=== PATIENT | male | born 1960 | race American Indian/Alaskan Native ===

== ENCOUNTER 2021-03-23 10:20 | Outpatient (REF) | payer OTHER, SELFPAY ==
--- NOTE | ~2021-03-23 | XR_ITS ---
EXAMINATION: XR LUMBOSACRAL SPINE CLINICAL INFORMATION: Low back pain COMPARISON: None TECHNIQUE: Three views of the lumbosacral spine. FINDINGS: There is normal lumbar segmentation with 5 nonrib-bearing lumbar vertebrae of normal height. There is straightening of the lumbar lordosis. There is no lumbar vertebral compression, spondylolisthesis or destructive process. There are degenerative disc changes greatest at L4-L5 with endplate sclerosis, disc narrowing, and vertebral spurring. There are also degenerative disc changes at L3-L4 and borderline at L5-S1. The SI joints and visualized sacrum are unremarkable. XR/XR lumbar spine 2-3V IMPRESSION: 1. No vertebral compression, spondylolisthesis or destructive process. 2. Degenerative disc changes, greatest at L4-L5 and L3-L4.
== END 2021-03-23 10:21 | disposition home or self-care (01) ==
LOC: HO.HMGCX 10:20
PROVIDERS: PCP Nurse Practitioner Family; Visit Provider Nurse Practitioner Family
DX: M54.5 Low back pain (principal)
CPT/HCPCS: 72100

== ENCOUNTER 2021-08-01 08:07 | Outpatient (REF) | payer OTHER, SELFPAY ==
[2021-08-01 11:17] LABS: Appearance Urine CLEAR; Color Urine YELLOW; Glucose Urine UA 100 MG/DL (NEG); Leukocyte Esterase Urine NEG (NEG); Nitrite Urine NEG (NEG); PH 6.5 (5.0-8.0); Specific Gravity - Urine 1.015 (1.005-1.025); Urine Blood NEG (NEG); Urine Ketones NEG (NEG); Urine Protein TRACE MG/DL (NEG-TRACE)
[2021-08-01 11:35] LABS: Estimated Average Glucose 154 mg/dL
[2021-08-01 12:07] LABS: Alanine Aminotransferase 28 U/L (0-40); Albumin Level 4.3 g/dL (3.5-5.0); Alkaline Phosphatase 80 U/L (39-117); Anion Gap 14 (12-20); Aspartate Amino Transferase 20 U/L (5-37); Bilirubin Total 0.5 mg/dL (0.0-1.0); Blood Urea Nitrogen 12 mg/dL (9-16); Carbon Dioxide 24 mmol/L (22-29); Chloride 103 mmol/L (96-108); Cholesterol 248 mg/dL; Estimated Glomerular Filt Rate > 60; Glucose Fasting 138 mg/dL (60-99); HDL Cholesterol 41 mg/dL; LDL Cholesterol Calculated 161 mg/dl; Potassium 3.9 mmol/L (3.3-5.1); Sodium 137 mmol/L (135-145); Triglycerides 232 mg/dL
[2021-08-01 12:13] LABS: Prostate Specific Antigen Scr 1.05 ng/mL (<0.05-4.0); TSH reflex Free T4 2.43 uIU/mL (0.32-4.0)
== END 2021-08-01 08:08 | disposition home or self-care (01) ==
LOC: HO.HMGCLDS 08:07
PROVIDERS: PCP Nurse Practitioner Family; Visit Provider Nurse Practitioner Family
DX: Z00.00 Encounter for general adult medical examination without abnormal findings (principal); Z12.5 Encounter for screening for malignant neoplasm of prostate; R73.01 Impaired fasting glucose
CPT/HCPCS: 36415; 80053; 80061; 81003; 83036; 84153; 84443

== ENCOUNTER 2022-01-30 08:57 | Outpatient (REF) | payer OTHER, SELFPAY ==
[2022-01-30 11:31] LABS: Appearance Urine CLEAR; Color Urine YELLOW; Glucose Urine UA NEG (NEG); Leukocyte Esterase Urine NEG (NEG); Nitrite Urine NEG (NEG); PH 6.5 (5.0-8.0); Specific Gravity - Urine 1.025 (1.005-1.025); Urine Blood NEG (NEG); Urine Ketones NEG (NEG); Urine Protein NEG (NEG-TRACE)
[2022-01-30 11:57] LABS: Alanine Aminotransferase 24 U/L (0-40); Albumin Level 4.4 g/dL (3.5-5.0); Alkaline Phosphatase 87 U/L (39-117); Anion Gap 13 (12-20); Aspartate Amino Transferase 16 U/L (5-37); Bilirubin Total 0.6 mg/dL (0.0-1.0); Blood Urea Nitrogen 11 mg/dL (9-16); Calcium 9.3 mg/dL (8.4-10.2); Carbon Dioxide 28 mmol/L (22-29); Chloride 103 mmol/L (96-108); Cholesterol 190 mg/dL; Estimated Glomerular Filt Rate > 60; Glucose Fasting 133 mg/dL (60-99); HDL Cholesterol 41 mg/dL; LDL Cholesterol Calculated 128 mg/dl; Potassium 4.5 mmol/L (3.3-5.1); Sodium 139 mmol/L (135-145); Total Protein 7.2 g/dL (6.5-8.0); Triglycerides 105 mg/dL
[2022-01-30 11:59] LABS: Estimated Average Glucose 143 mg/dL; Hemoglobin A1c % 6.6 %
[2022-01-30 12:24] LABS: Creatinine Urine 213.72 mg/dL
[2022-01-30 12:25] LABS: TSH reflex Free T4 1.95 uIU/mL (0.32-4.0)
== END 2022-01-30 08:58 | disposition home or self-care (01) ==
LOC: HO.HMGCLDS 08:57
PROVIDERS: Visit Provider Nurse Practitioner Family
DX: E11.9 Type 2 diabetes mellitus without complications (principal)
CPT/HCPCS: 36415; 80053; 80061; 81003; 82043; 83036; 84443

== ENCOUNTER 2022-06-27 18:18 | Observation (INO) | payer OTHER, SELFPAY ==
--- NOTE | ~2022-06-27 | XR_ITS ---
EXAMINATION: XR RIBS, RIGHT CLINICAL INFORMATION: Rib pain. Status post fall COMPARISON: None TECHNIQUE: 3 views of the right ribs were obtained. FINDINGS: The lungs are somewhat expanded and clear. Heart size and progress clarities normal. Multiple views of right ribs reveal minimally displaced fracture right posterior 10th and nondisplaced fracture right ninth, eighth and likely seventh ribs.. There is mild spondylosis dorsal spine XR/XR ribs RT min 3V w CXR1V IMPRESSION: Minimally displaced fracture right posterior 10th rib and nondisplaced fracture posterior right ninth, eighth and likely seventh ribs. There is no visible pneumothorax. The lungs are hypoexpanded but clear.
--- NOTE | ~2022-06-27 | CT_ITS ---
EXAMINATION: CT CHEST, ABDOMEN AND PELVIS WITH CONTRAST. CLINICAL INFORMATION: Fall. Severe left-sided pain. COMPARISON: 3 radiographs from 06/27/2022. TECHNIQUE: Multidetector volumetric imaging was performed from the thoracic inlet to the pubic symphysis following the administration of 100 mL Omnipaque 350 intravenous contrast.No contrast reaction reported. Sagittal and coronal reformatted images were obtained on the technologist workstation. This CT examination was performed using dose optimization techniques as appropriate, variously including the following: *Automated exposure control. *Adjustment of mA and/or kV according to patient size (this includes techniques or standardized protocols for targeted exams where dose is matched to indication/reason for exam; i.e. extremities or head). *Use of iterative reconstruction technique. DLP: 1299 mGy-cm FINDINGS: CHEST: Lungs: Moderate dependent atelectasis. No additional diffuse or focal lung parenchymal abnormalities. No pleural effusion or pneumothorax. The airways remain patent. Mediastinum: The cardiac structures are normal in appearance. No mediastinal free fluid or gas. No pericardial effusion. No hilar, mediastinal, or axillary lymphadenopathy. ABDOMEN/PELVIS: Liver, Biliary Ducts, and Gallbladder: The liver is normal in size and attenuation without focal hepatic lesions or biliary ductal dilatation. The gallbladder is physiologically distended without radiopaque gallstones, pericholecystic fluid, or significant gallbladder wall thickening. Pancreas: The pancreatic duct measures up to 0.35 cm in diameter throughout its course. Otherwise, the pancreas is normal in appearance. Adrenal Glands: The adrenal glands are normal in appearance. Spleen: The spleen is normal in appearance. Kidneys and Ureters: The kidneys demonstrate symmetric nephrograms without evidence of nephrolithiasis or hydronephrosis. No ureterolithiasis or hydroureter. Urinary Bladder: The urinary bladder is partially distended without focal wall thickening. No bladder calculi are noted. Gastrointestinal System: The stomach is decompressed and therefore not well evaluated on this exam. The small bowel is of normal caliber without regions of abnormal wall enhancement. Fluid-filled duodenal diverticulum. Moderate pancolonic diverticulosis without evidence of diverticulitis. Otherwise, the colon is normal in appearance without focal wall thickening or pericolonic inflammatory change. The appendix is not definitively visualized; however, there is no demonstrated inflammation in its expected location to suggest appendicitis. Genitourinary: The prostate gland and seminal vesicles are normal in appearance. Intra-abdominal and Retroperitoneal Spaces: No intra-abdominal free fluid collections or gas. No mesenteric, retroperitoneal, or inguinal lymphadenopathy. Moderate left-sided fat-containing inguinal hernia. VASCULATURE: No evidence of traumatic aortic injury. The aorta is normal in contour and caliber with mild calcific atherosclerotic disease. Musculoskeletal: Mildly displaced fractures of the posterolateral right 8th-10th ribs. No acute fractures of the sternum, clavicles, scapulae, shoulders, thoracolumbar spine, pelvis, or hips. Moderate multilevel degenerative changes of the spine. Moderate degenerative arthropathy of the acromioclavicular joints. No suspicious lytic or sclerotic osseous lesions demonstrated. No soft tissue masses demonstrated. CT/CT abdomen pelvis w con IMPRESSION: 1. Mildly displaced fractures of the posterolateral right 8th-10th ribs. 2. No evidence of additional acute traumatic injury of the chest, abdomen, or pelvis. 3. Pancolonic diverticulosis. 4. Nonspecific mild dilation of the pancreatic duct.
[2022-06-27 18:22] VITALS: BP 165/100; PULSE 77; RESP 18; TEMP 36.1; O2SAT 96; BMI 28.1
[2022-06-27] MEDS: Acetaminophen 325 MG TABLET 650 MG PO (18:33)
[2022-06-27 18:41] LABS: MANUAL DIFF FLAG NO
[2022-06-27 18:56] LABS: Alanine Aminotransferase 27 U/L (0-40); Albumin Level 4.6 g/dL (3.5-5.0); Alkaline Phosphatase 89 U/L (39-117); Anion Gap 14 (12-20); Aspartate Amino Transferase 24 U/L (5-37); Bilirubin Total 0.4 mg/dL (0.0-1.0); Blood Urea Nitrogen 18 mg/dL (9-16); Calcium 9.4 mg/dL (8.4-10.2); Carbon Dioxide 27 mmol/L (22-29); Chloride 103 mmol/L (96-108); Creatinine Clr Calc Pharmacy 79.9; Estimated Glomerular Filt Rate > 60; Glucose Random 203 mg/dL (60-115); Potassium 4.1 mmol/L (3.3-5.1); Sodium 140 mmol/L (135-145); Total Protein 7.3 g/dL (6.5-8.0)
[2022-06-27 18:59] LABS: Basophils Percent Auto 0.4 % (0-2); Eosinophils Absolute Auto 0.1 X10*3/uL (0.0-0.4); Eosinophils Percent Auto 1.4 % (0-4); Hematocrit 45.3 % (42.0-52.0); Hemoglobin 15.3 g/dl (14.0-18.0); Imm Gran Abs Auto 0.07 X10*3/uL (0.00-0.03); Imm Gran Pct Auto 0.8 % (0.0-0.4); Lymphocytes Absolute Auto 1.2 X10*3/uL (1.2-4.9); Lymphocytes Percent Auto 14.4 % (20-40); Mean Corpuscular HGB Conc 33.8 g/dl (31.0-36.0); Mean Corpuscular Volume 85.8 fL (80.0-98.0); Mean Platelet Volume 10.2 fL (9.4-12.4); Monocytes Absolute Auto 1.1 X10*3/uL (0.1-1.2); Monocytes Percent Auto 12.7 % (2-11); Neutrophils Percent Auto 70.3 % (45-73); Platelet Count 227 X10*3/uL (160-400); Red Blood Count 5.28 X10*6/uL (4.60-5.80); Red Cell Distribution Width 13.6 % (11.0-16.0); White Blood Count 8.6 X10*3/uL (4.8-10.8)
[2022-06-28] MEDS: Morphine Sulfate 4 MG/ML CARTRIDGE IVPUSH ×2 (00:03→09:09)
[2022-06-28] MEDS: 0.9 % Sodium Chloride 1,000 ML 999 ML IV (00:03)
--- NOTE | 2022-06-28 00:06 | ED_ITS ---
HPI - Fall General Chief Complaint: Fall Stated Complaint: R Side Pain S/P Fall 06/27/22 Time Seen by Provider: 06/27/22 23:41 Source: patient Mode of arrival: ambulatory Limitations: no limitations History of Present Illness HPI Narrative: This is a 62-year-old male who presents to the emergency department status post slip and fall from standing height. Patient tells me that it he slipped on a wet floor in his garage at home earlier this evening landing on his right side landing on a plow. He tells me that this occurred approximately 8 hours ago. Reports pain came on immediatly after he fell. He now reports right-sided rib pain 10/10, worse with inspiration. Denies hitting his head or losing consciousness. Not on thinners. At this time patient reports discomfort at site. He denies chest pain, shortness of breath, nausea, vomiting, headache, dizziness, vision changes, weakness. Denies preceding sx to fall. MD complaint: fall Onset (ago): hour(s) (8) Fall from: standing Place fall occurred: home Related Data Home Medications Medication Instructions Recorded Confirmed diclofenac sodium 75 mg mg PO 08/01/21 05/11/22 tablet,delayed release gabapentin 300 mg capsule 300 mg PO TID 01/30/22 05/11/22 celecoxib 200 mg capsule 1 cap PO DAILY 06/28/22 06/28/22 Previous Rx's Medication Instructions Recorded alcohol swabs (Alcohol Prep Pads) 1 pad topical TID 30 days #100 ea 08/10/21 blood-glucose meter (FreeStyle #1 ea 08/10/21 Lite Meter kit) lancets 28 gauge (FreeStyle #100 ea 08/10/21 Lancets) blood sugar diagnostic (FreeStyle #100 ea 09/06/21 Lite Strips) atorvastatin 20 mg tablet 20 mg PO BEDTIME 90 days #90 tabs 10/26/21 pantoprazole 40 mg tablet,delayed 40 mg PO DAILY 90 days #90 tabs 10/26/21 release lisinopril 2.5 mg tablet 2.5 mg PO DAILY 30 days #30 tabs 04/22/22 Allergies Allergy/AdvReac Type Severity Reaction Status Date / Time No Known Allergies Allergy Verified 06/27/22 18:22 Review of Systems Review of Systems: Constitutional : No Weight loss, No Fever, No Chills, No Fatigue, No Malaise ENT/Mouth : No sore throat, No Rhinorrhea Eyes: No Eye Pain, No Swelling, No Redness Cardiovascular : No Chest Pain, No SOB, No Dyspnea on Exertion, No Orthopnea, No Edema, No Palpitations Respiratory : No Cough, No Sputum, No Wheezing Gastrointestinal : No Nausea, No Vomiting, No Diarrhea, No Constipation, No abdominal Pain, No Hematochezia, No Melena Genitourinary : No Dysuria, No Urinary Frequency, No Hematuria, Musculoskeletal : No joint pain, No Myalgias, No Joint Swelling, + rib pain Skin : No Skin Lesions, No rash Neuro : No Weakness, No Numbness, No Dizziness, No Headache All other systems reviewed and are negative Yes all other systems are reviewed and are negative [facility] Past Medical History Attestation statement: The following information was validated with the patient. Source: old records reviewed and nursing notes reviewed Family History Family History Father HTN (hypertension) Diabetes mellitus Mother Asthma Mental health disorder Brother No problems noted. Brother Substance use disorder Son No problems noted. Sister Mental health disorder Sister No problems noted. Son No problems noted. 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 Appearance: Alert.? Oriented X3.? No acute distress.? Patient extremely uncomfortable lying in the bed secondary to pain. Head: Normocephalic, atraumatic, no step-offs or deformities Eyes: Pupils equal, round and reactive to light.? ENT: Pharynx normal.? Neck: Normal inspection.? Neck supple.? CVS: Normal heart rate and rhythm.? Pulses normal. Pain with palpation to the right side of the chest. No signs of paradoxical chest rise and fall or flail chest. Respiratory: No respiratory distress.? Breath sounds normal.? Abdomen: Soft and nontender.? Skin: Skin warm and dry.? Normal skin color.? Normal skin turgor.? Extremities: No lower extremity edema.? No calf ttp. 5/5 strength to bilateral upper and lower extremities Back: No midline tenderness, no C-spine tenderness, full range of motion, no CVA tenderness bilaterally Neuro: Oriented X 3.? No motor deficit.? No sensory deficit. Course Reevaluation(s) Reevaluation #1: CBC with no acute findings. Chemistry w/o acute findings. Coags wnl. Xray of ribs w/ multiple fib fx 7-10 on right, no pneumothorax. CT of chest abd and pelvis pending. Time: 01:30 Reevaluation #2: CT of the chest with mildly displaced fractures of the posterior lateral right 8th through 10th ribs, consistent with physical exam findings. No evidence of additional acute traumatic injury of the chest, abdomen or pelvis. Benedict colonic diverticulosis noted, educated patient on diagnosis. At this time patient reporting 7/10 pain at rest despite morphine and Dilaudid. He tells me that if he moves, laughs or sneezes his pain goes up to a 20. Patient extremely uncomfortable, nursing had a tough time putting Lidoderm patch an affected area as patient was in so much pain. I do not think patient would do well being discharged home with p.o. pain meds as he is still in significant pain despite IV pain meds. At this time patient will be admitted to the hospital for observation, pain control. I did order incentive spirometer on this patient Time: 02:57 MDM - Fall MDM Narrative Medical decision making narrative: 0000 This is a 62-year-old male who presents to the ED status post slip and fall on a wet floor 8 hours ago, landing on his right side on a plow. Denies hitting his head or losing consciousness. Physical exam significant for pain to palpation on the right side of chest. Upon entrance into the ED patient had a rib series done in triage which showed 4 consecutive rib fractures, 7 through 10. Will rule out more rib fractures with CT. Plan at this time includes trauma scans of the chest, abdomen and pelvis, basic labs, a PT and INR Medical Records Attestation: I reviewed the patient's medical records. Lab Data Attestation: I reviewed the patient's lab results. Result diagrams: 06/27/22 18:32 06/27/22 18:32 Labs: Lab Results 06/27/22 06/27/22 06/28/22 Range/Units 18:32 18:32 00:14 WBC 8.6 (4.8-10.8) X10*3/uL RBC 5.28 (4.60-5.80) X10*6/uL Hgb 15.3 (14.0-18.0) g/dl Hct 45.3 (42.0-52.0) % MCV 85.8 (80.0-98.0) fL MCH 29.0 (27.0-33.0) pg MCHC 33.8 (31.0-36.0) g/dl RDW 13.6 (11.0-16.0) % Plt Count 227 (160-400) X10*3/uL MPV 10.2 (9.4-12.4) fL Immature Gran % (Auto) 0.8 H (0.0-0.4) % Neut % (Auto) 70.3 (45-73) % Lymph % (Auto) 14.4 L (20-40) % [place] % (Auto) 12.7 H (2-11) % Eos % (Auto) 1.4 (0-4) % Baso % (Auto) 0.4 (0-2) % Lymph # (Auto) 1.2 (1.2-4.9) X10*3/uL [place] # (Auto) 1.1 (0.1-1.2) X10*3/uL Eos # (Auto) 0.1 (0.0-0.4) X10*3/uL Baso # (Auto) 0.0 (0.0-0.2) X10*3/uL Abs Immat Gran (auto) 0.07 H (0.00-0.03) X10*3/uL Absolute Neuts (auto) 6.0 (2.0-8.3) x10*3/uL Absolute Nucleated RBC 0.000 (0.0-0.012) X10*3/uL Nucleated RBC % (auto) 0.0 (0.0-0.2) /100WBC PT 12.1 (10.0-13.1) SEC INR 1.1 (0.9-1.1) Sodium 140 (135-145) mmol/L Potassium 4.1 (3.3-5.1) mmol/L Chloride 103 (96-108) mmol/L Carbon Dioxide 27 (22-29) mmol/L Anion Gap 14 (12-20) BUN 18 H D (9-16) mg/dL Creatinine 0.98 (0.5-1.4) mg/dL Estim Creat Clear Calc 79.9 Estimated GFR > 60 Random Glucose 203 H (60-115) mg/dL Calcium 9.4 (8.4-10.2) mg/dL Total Bilirubin 0.4 (0.0-1.0) mg/dL AST 24 D (5-37) U/L ALT 27 (0-40) U/L Alkaline Phosphatase 89 (39-117) U/L Troponin I High Sens (<3.5-35.0) ng/L Total Protein 7.3 (6.5-8.0) g/dL Albumin 4.6 (3.5-5.0) g/dL 06/28/22 Range/Units 18:32 WBC (4.8-10.8) X10*3/uL RBC (4.60-5.80) X10*6/uL Hgb (14.0-18.0) g/dl Hct (42.0-52.0) % MCV (80.0-98.0) fL MCH (27.0-33.0) pg MCHC (31.0-36.0) g/dl RDW (11.0-16.0) % Plt Count (160-400) X10*3/uL MPV (9.4-12.4) fL Immature Gran % (Auto) (0.0-0.4) % Neut % (Auto) (45-73) % Lymph % (Auto) (20-40) % [place] % (Auto) (2-11) % Eos % (Auto) (0-4) % Baso % (Auto) (0-2) % Lymph # (Auto) (1.2-4.9) X10*3/uL [place] # (Auto) (0.1-1.2) X10*3/uL Eos # (Auto) (0.0-0.4) X10*3/uL Baso # (Auto) (0.0-0.2) X10*3/uL Abs Immat Gran (auto) (0.00-0.03) X10*3/uL Absolute Neuts (auto) (2.0-8.3) x10*3/uL Absolute Nucleated RBC (0.0-0.012) X10*3/uL Nucleated RBC % (auto) (0.0-0.2) /100WBC PT (10.0-13.1) SEC INR (0.9-1.1) Sodium (135-145) mmol/L Potassium (3.3-5.1) mmol/L Chloride (96-108) mmol/L Carbon Dioxide (22-29) mmol/L Anion Gap (12-20) BUN (9-16) mg/dL Creatinine (0.5-1.4) mg/dL Estim Creat Clear Calc Estimated GFR Random Glucose (60-115) mg/dL Calcium (8.4-10.2) mg/dL Total Bilirubin (0.0-1.0) mg/dL AST (5-37) U/L ALT (0-40) U/L Alkaline Phosphatase (39-117) U/L Troponin I High Sens < 3.5 (<3.5-35.0) ng/L Total Protein (6.5-8.0) g/dL Albumin (3.5-5.0) g/dL Critical Care Time Critical Care Time Critical Care Time: No Discharge Plan Discharge Clinical Impression: Multiple rib fractures, Fall Patient Disposition: Admitted As Inpatient
[2022-06-28 00:23] VITALS: BP 147/90; PULSE 56; RESP 20; O2SAT 96
[2022-06-28] MEDS: iohexoL 350 MG/ML 100 ML INFUS..BTL 85 ML IV (00:54)
[2022-06-28 01:12] LABS: INTERNATIONAL NORM RATIO 1.1 (0.9-1.1); Prothrombin Time 12.1 SEC (10.0-13.1)
--- NOTE | 2022-06-28 02:01 | PC.NURSE ---
pt drowsy, cont to report high pain w movement - pt unable to put a number to pain, vss, med rec complete.
[2022-06-28 02:07] LABS: Troponin-I High Sensitivity < 3.5 ng/L (<3.5-35.0)
[2022-06-28] MEDS: Lidocaine 4 % Patch ADH..PATCH 1 PATCH TRANSDERMA (02:09)
[2022-06-28] MEDS: HYDROmorphone HCl 0.5 MG/0.5 ML SYRINGE IVPUSH (02:10)
[2022-06-28 02:42] VITALS: BP 136/83; PULSE 53; RESP 18; O2SAT 96
--- NOTE | 2022-06-28 03:21 | PC.NURSE ---
RN assumed care of patient at this time.
--- NOTE | 2022-06-28 05:06 | PC.NURSE ---
Provided patient with incentive spirometry. Patient goal is 2400 based height and age. Patient able to do 1750 at this time. RN instructed patient to try 10x per hour while awake.
[2022-06-28 05:16] VITALS: BP 134/84; PULSE 57; RESP 18; O2SAT 95
--- NOTE | 2022-06-28 06:03 | PM.IMHP ---
History of Present Illness Date of Service: 06/28/22 Chief Complaint: fall, pain post falling 62-year-old male with past medical history of diabetes, sleep apnea, who presents to the hospital with complaints of right-sided chest wall pain. Patient reports that he was working in the garage, the garage was from the recent rain, he slipped and fell on his side and had significant pain and difficulty breathing as a result. Therefore came to the hospital. Patient reports that his pain was 10/10, localized to the right ribcage, not relieved by any p.o. medications given, pain is nonradiating, and is constant. Patient reports better pain control with IV medications, he states that his breathing has improved. Patient otherwise denies any headache, no change in vision, no recent cough, no abdominal pain nausea or vomiting, no diarrhea constipation and no urinary symptoms. On arrival to the ED patient hemodynamically stable with no significant abnormal vitals except high blood pressure labs reviewed, unremarkable Chest CT shows mildly displaced fractures of the posterolateral right 8th to 10th ribs, no evidence of additional acute traumatic injury of the chest, pancolonic diverticulosis patient given multiple rounds of pain control with minimal relief, patient will be admitted for intractable pain Review of Systems Review of Systems: Yes all other systems are reviewed and are negative [facility] Medical History (Updated 06/28/22 @ 06:08 by Jaime Fernandes MD) Diabetes Sleep apnea Family History Father HTN (hypertension) Diabetes mellitus Mother Asthma Mental health disorder Brother No problems noted. Brother Substance use disorder Son No problems noted. Sister Mental health disorder Sister No problems noted. Son No problems noted. 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 Meds Allergies Allergy/AdvReac Type Severity Reaction Status Date / Time No Known Allergies Allergy Verified 06/27/22 18:22 Active Medications: Current Medications Acetaminophen (Acetaminophen 325 Mg Tablet) 650 mg PO Q6H PRN PRN Reason: Pain, Mild (Pain Scale 1-3) Docusate Sodium (Docusate Sodium 100 Mg Capsule) 100 mg PO DAILY PRN PRN Reason: Constipation Morphine Sulfate (Morphine Sulfate 4 Mg/Ml Cartridge) 4 mg IVPUSH Q4H PRN; Protocol PRN Reason: Pain, Severe (Pain Scale 7-10) Ondansetron HCl (Ondansetron Hcl 4 Mg/2 Ml Vial) 4 mg IVPUSH Q8H PRN PRN Reason: Nausea and Vomiting Oxycodone HCl (Oxycodone Hcl Immed Release 5 Mg Tablet) 5 mg PO Q6H PRN PRN Reason: Pain, Severe (Pain Scale 7-10) Pharmacy Consult (Consult Rx Perform Med Rec) 1 each MISCELLANE ONCE PRN PRN Reason: Consult order Sodium Chloride (0.9 % Sodium Chloride Flush 3 Ml Syringe) 3 ml IVFLUSH [facility] Home Medications Medication Instructions Recorded Confirmed Last Taken Type celecoxib 200 mg capsule 1 cap PO DAILY 06/28/22 06/28/22 Unknown History Physical Exam Vital Signs and Narrative: Vital Signs: Last Vital Signs Temp 97.0 F 06/27/22 18:22 Pulse 57 06/28/22 05:16 Resp 18 06/28/22 05:16 BP 134/84 06/28/22 05:16 Pulse Ox 95 06/28/22 05:16 O2 Del Method 06/28/22 05:16 BMI result Body Mass Index 28.1 Const: Other: patient appears comfortable at this time, although slightly somnolent but wakes up fully and answers questions appropriately General: cooperative and no acute distress Orientation/consciousness: patient oriented x3 Eyes: General: appearance normal, both eyes and all related structures Chest: Other: tender in the right region on minimal palpation Resp: Effort & Inspection: normal respiratory effort Auscultation: clear to auscultation bilaterally Cardio: Rate: regular rate Rhythm: regular rhythm GI: Palpation (GI): Soft to palpation Auscultation: normal bowel sounds Skin: General skin exam: no rashes or lesions noted Neuro: General: patient oriented x3 Cognition (Neuro): normal cognition Extrem: General: Yes normal to inspection and Yes no pedal edema Results Labs CBC and Chem 7: 06/28/22 06:57 06/28/22 06:57 Labs: Laboratory Results - last 24 hr 06/27/22 06/27/22 06/28/22 18:32 18:32 00:14 MCV 85.8 MCH 29.0 MCHC 33.8 RDW 13.6 Plt Count 227 MPV 10.2 Immature Gran % (Auto) 0.8 H Neut % (Auto) 70.3 Lymph % (Auto) 14.4 L Cannon % (Auto) 12.7 H Eos % (Auto) 1.4 Baso % (Auto) 0.4 Lymph # (Auto) 1.2 [place] # (Auto) 1.1 Eos # (Auto) 0.1 Baso # (Auto) 0.0 Abs Immat Gran (auto) 0.07 H Absolute Neuts (auto) 6.0 Absolute Nucleated RBC 0.000 Nucleated RBC % (auto) 0.0 PT 12.1 INR 1.1 Anion Gap 14 Estim Creat Clear Calc 79.9 Estimated GFR > 60 Random Glucose 203 H Calcium 9.4 Total Bilirubin 0.4 AST 24 D ALT 27 Alkaline Phosphatase 89 Total Protein 7.3 Albumin 4.6 Imaging Radiologist's Impressions: Impressions Ribs X-Ray 06/27/22 18:49 IMPRESSION: Minimally displaced fracture right posterior 10th rib and nondisplaced fracture posterior right ninth, eighth and likely seventh ribs. There is no visible pneumothorax. The lungs are hypoexpanded but clear. Abdomen/Pelvis CT 06/28/22 00:45 IMPRESSION: 1. Mildly displaced fractures of the posterolateral right 8th-10th ribs. 2. No evidence of additional acute traumatic injury of the chest, abdomen, or pelvis. 3. Pancolonic diverticulosis. 4. Nonspecific mild dilation of the pancreatic duct. Chest CT 06/28/22 00:45 IMPRESSION: 1. Mildly displaced fractures of the posterolateral right 8th-10th ribs. 2. No evidence of additional acute traumatic injury of the chest, abdomen, or pelvis. 3. Pancolonic diverticulosis. 4. Nonspecific mild dilation of the pancreatic duct. Assessment and Plan (1) Multiple rib fractures: Status: Acute (2) Fall: Status: Acute (3) Intractable pain: Status: Acute Plan 62-year-old male with past medical history of diabetes as well as sleep apnea not on CPAP due to insurance issues presents the hospital with complaints of fall and pain on the right side found to have rib fractures # intractable chest wall pain - secondary to rib fractures - at this time will prescribe him IV as well as p.o. narcotics - taper off as tolerated - incentive spirometry # rib fractures - secondary to fall - intractable pain - pain control - incentive spirometry # fall - mechanical in nature on the wet slippery floor - fall precaution # diabetes - low-dose sliding scale insulin - diabetic diet # sleep apnea - does not use CPAP due to insurance issues # hypertension - stable - continue lisinopril DVT prophylaxis: Lovenox Quality Stroke Does the patient have a stroke diagnosis?: No VTE Prior VTE?: No VTE Risk Level:: Medical - moderate - high VTE Device Contraindication: Treatment Not Indicated VTE Drug Contraindication: Treatment Not Indicated
--- NOTE | 2022-06-28 07:22 | PHA.MEDREC ---
Pharmacy Consult ? Medication Reconciliation Nurse has completed the medication reconciliation, pharmacist reviewed
[2022-06-28 07:32] LABS: MANUAL DIFF FLAG NO
[2022-06-28 07:53] LABS: Basophils Percent Auto 0.6 % (0-2); Eosinophils Absolute Auto 0.1 X10*3/uL (0.0-0.4); Eosinophils Percent Auto 1.7 % (0-4); Hematocrit 42.2 % (42.0-52.0); Imm Gran Abs Auto 0.02 X10*3/uL (0.00-0.03); Imm Gran Pct Auto 0.3 % (0.0-0.4); Lymphocytes Absolute Auto 1.2 X10*3/uL (1.2-4.9); Lymphocytes Percent Auto 18.9 % (20-40); Mean Corpuscular HGB Conc 33.2 g/dl (31.0-36.0); Mean Corpuscular Hemoglobin 28.6 pg (27.0-33.0); Mean Corpuscular Volume 86.3 fL (80.0-98.0); Mean Platelet Volume 10.1 fL (9.4-12.4); Monocytes Absolute Auto 0.9 X10*3/uL (0.1-1.2); Monocytes Percent Auto 14.4 % (2-11); Neutrophils Absolute Auto 4.2 x10*3/uL (2.0-8.3); Neutrophils Percent Auto 64.1 % (45-73); Platelet Count 212 X10*3/uL (160-400); Red Blood Count 4.89 X10*6/uL (4.60-5.80); Red Cell Distribution Width 13.7 % (11.0-16.0); White Blood Count 6.5 X10*3/uL (4.8-10.8)
[2022-06-28 07:58] LABS: Anion Gap 13 (12-20); Blood Urea Nitrogen 15 mg/dL (9-16); Carbon Dioxide 24 mmol/L (22-29); Chloride 105 mmol/L (96-108); Creatinine Clr Calc Pharmacy 105.8; Estimated Glomerular Filt Rate > 60; Glucose Random 120 mg/dL (60-115); Potassium 4.1 mmol/L (3.3-5.1); Sodium 138 mmol/L (135-145)
[2022-06-28 08:04] LABS: Calcium 8.5 mg/dL (8.4-10.2)
[2022-06-28 08:55] LABS: COVID-19 Test Negative (Negative)
[2022-06-28] MEDS: Omeprazole 20 MG CAPSULE.DR PO (09:08)
[2022-06-28] MEDS: Enoxaparin Sodium 40 MG/0.4 ML SYRINGE SUBCUT (09:08)
[2022-06-28] MEDS: 0.9 % Sodium Chloride Flush 3 ML SYRINGE IVFLUSH (09:09)
[2022-06-28 09:27] VITALS: BP 138/88; PULSE 58; RESP 16; TEMP 36.9; O2SAT 95
[2022-06-28] MEDS: lisinopriL 2.5 MG TABLET PO (09:57)
--- NOTE | 2022-06-28 11:23 | PC.NURSE ---
pt amb well with no assistance.
--- NOTE | 2022-06-28 14:31 | PM.DS ---
DS: Providers Provider Date of Service: 06/28/22 Date of admission: 06/28/22 04:35 Primary care physician: Toribio Schwartz [facility] DS: Diagnosis Discharge Diagnosis (1) Multiple rib fractures: Status: Acute (2) Fall: Status: Acute (3) Intractable pain: Status: Acute DS: Summary Hospital Course Hospital Course: Chief Complaint:? fall, pain post falling ?62-year-old male with past medical history of diabetes, sleep apnea, who presents to the hospital with complaints of right-sided chest wall pain.? Patient reports that he was working in the garage, the garage was from the recent rain, he slipped and fell on his side and had significant pain and difficulty breathing as a result.? Therefore came to the hospital.? Patient reports that his pain was 10/10, localized to the right ribcage, not relieved by any p.o. medications given,? pain is nonradiating, and is constant.? Patient reports better pain control with IV medications,? he states that his breathing has improved. ? Patient otherwise denies any headache, no change in vision, no recent cough, no abdominal pain nausea or vomiting, no diarrhea constipation and no urinary symptoms. ? On arrival to the ED patient hemodynamically stable with no significant abnormal vitals except high blood pressure ?labs reviewed, unremarkable Chest CT shows mildly displaced fractures of the posterolateral right 8th to 10th ribs, no evidence of additional acute traumatic injury of the chest, pancolonic diverticulosis ?patient given multiple rounds of pain control with? minimal relief, patient will be admitted for intractable pain hospital course 62-year-old male with past medical history of diabetes as well as sleep apnea not on CPAP due to insurance issues presents the hospital with complaints of Mechanicalfall and pain on the right side found to have 8-10 mildly displaced right sided rib fractures, patient admitted to medical floor with intractable chest pain treated with IV morphine and Lidoderm patch patient's symptoms improved currently he is feeling better therefore being discharged home on oxycodone 5 mg q.4 hours as needed, Tylenol t.i.d. and Celebrex twice daily he has been strongly recommended to use incentive spirometry deep breathing and ambulation as tolerated. in regard to chronic medical issues including diabetes, hypertension he is recommended to resume home medications? Time Spent with Patient Time attestation: Total time spent providing and/or coordinating discharge services: Discharge coordination time: Greater than 30 minutes Quality: Safe Use of Opioids Does Pt have an Active Cancer Diagnosis on the Problem List?: No Quality: Stroke Does the patient have a stroke diagnosis?: No Physical Exam Vital Signs: Vital Signs: Last Vital Signs Temp 98.4 F 06/28/22 09:27 Pulse 58 06/28/22 09:27 Resp 16 06/28/22 09:27 BP 138/88 06/28/22 09:27 Pulse Ox 95 06/28/22 09:27 O2 Del Method 06/28/22 09:27 BMI result Body Mass Index 28.1 Const: Other: General awake alertin no acute distress. Neck supple no JVD. CVS regular rate rhythm, Respiratory lungs clear to auscultation, diminished at bases, no respiratory distress, no wheeze, no rhonchi. Gastrointestinal abdomen soft, nontender, bowel sounds audible, Extremities no edema. Neuro nonfocal psych appropriate affect DS: Data Data Completed and Pending Labs on day of discharge: Laboratory Results - last 24 hr 06/27/22 06/27/22 06/28/22 18:32 18:32 00:14 WBC 8.6 RBC 5.28 Hgb 15.3 Hct 45.3 MCV 85.8 MCH 29.0 MCHC 33.8 RDW 13.6 Plt Count 227 MPV 10.2 Immature Gran % (Auto) 0.8 H Neut % (Auto) 70.3 Lymph % (Auto) 14.4 L Pickett % (Auto) 12.7 H Eos % (Auto) 1.4 Baso % (Auto) 0.4 Lymph # (Auto) 1.2 Pickett # (Auto) 1.1 Eos # (Auto) 0.1 Baso # (Auto) 0.0 Abs Immat Gran (auto) 0.07 H Absolute Neuts (auto) 6.0 Absolute Nucleated RBC 0.000 Nucleated RBC % (auto) 0.0 PT 12.1 INR 1.1 Sodium 140 Potassium 4.1 Chloride 103 Carbon Dioxide 27 Anion Gap 14 BUN 18 H D Creatinine 0.98 Estim Creat Clear Calc 79.9 Estimated GFR > 60 Random Glucose 203 H Calcium 9.4 Total Bilirubin 0.4 AST 24 D ALT 27 Alkaline Phosphatase 89 Troponin I High Sens Total Protein 7.3 Albumin 4.6 COVID-19 (PRICE) COVID-19 Clin Com 06/28/22 06/28/22 06/28/22 06:57 06:57 08:34 WBC 6.5 RBC 4.89 Hgb 14.0 Hct 42.2 MCV 86.3 MCH 28.6 MCHC 33.2 RDW 13.7 Plt Count 212 MPV 10.1 Immature Gran % (Auto) 0.3 Neut % (Auto) 64.1 Lymph % (Auto) 18.9 L Pickett % (Auto) 14.4 H Eos % (Auto) 1.7 Baso % (Auto) 0.6 Lymph # (Auto) 1.2 Pickett # (Auto) 0.9 Eos # (Auto) 0.1 Baso # (Auto) 0.0 Abs Immat Gran (auto) 0.02 Absolute Neuts (auto) 4.2 Absolute Nucleated RBC 0.000 Nucleated RBC % (auto) 0.0 PT INR Sodium 138 Potassium 4.1 Chloride 105 Carbon Dioxide 24 Anion Gap 13 BUN 15 Creatinine 0.74 Estim Creat Clear Calc 105.8 Estimated GFR > 60 Random Glucose 120 H D Calcium 8.5 D Total Bilirubin AST ALT Alkaline Phosphatase Troponin I High Sens Total Protein Albumin COVID-19 (PRICE) Negative COVID-19 [facility] See Note 06/28/22 18:32 WBC RBC Hgb Hct MCV MCH MCHC RDW Plt Count MPV Immature Gran % (Auto) Neut % (Auto) Lymph % (Auto) Pickett % (Auto) Eos % (Auto) Baso % (Auto) Lymph # (Auto) Pickett # (Auto) Eos # (Auto) Baso # (Auto) Abs Immat Gran (auto) Absolute Neuts (auto) Absolute Nucleated RBC Nucleated RBC % (auto) PT INR Sodium Potassium Chloride Carbon Dioxide Anion Gap BUN Creatinine Estim Creat Clear Calc Estimated GFR Random Glucose Calcium Total Bilirubin AST ALT Alkaline Phosphatase Troponin I High Sens < 3.5 Total Protein Albumin COVID-19 (PRICE) COVID-19 [email or web address] Com Discharge Plan Discharge Patient Disposition: Home, Self-Care Discharge Diagnosis: mechanical fall intractable pain 8-10 right-sided rib fracture Referrals: Toribio Schwartz, MAKE UP OPERATOR-BC [Primary Care Provider] - 1 Week Discharge Medications: New oxycodone 5 mg Tablet 5 mg PO Q4H PRN (Reason: Pain, Severe (Pain Scale 7-10)) Qty: 24 0RF Rx Instructions: Partial Fill upon patient request. docusate sodium [Colace] 100 mg capsule 100 mg PO BID Qty: 60 0RF acetaminophen [Tylenol Extra Strength] 500 mg tablet 500 mg PO Q8H Qty: 60 0RF Rx Instructions: take 1-2 tablets every 8 hours for 5-7 days lidocaine 5 % adhesive patch,medicated 1 patch topical DAILY Qty: 15 0RF Rx Instructions: leave on most painful area for up to 12 hrs Continued alcohol swabs [Alcohol Prep Pads] Pads, Medicated 1 pad topical TID 30 Days Qty: 100 0RF Rx Instructions: test BS 3 times daily (DME) blood-glucose meter [FreeStyle Lite Meter] Kit See Rx Instructions .Route Qty: 1 0RF Rx Instructions: test BS 3 times daily (DME) lancets [FreeStyle Lancets] 28 gauge misc See Rx Instructions .Route Qty: 100 0RF Rx Instructions: test BS 3 times daily (DME) FreeStyle Lite Strips Strip See Rx Instructions .Route Qty: 100 0RF Rx Instructions: test BS 3 times daily pantoprazole 40 mg tablet,delayed release (DR/EC) 40 mg PO DAILY 90 Days Qty: 90 0RF atorvastatin 20 mg tablet 20 mg PO BEDTIME 90 Days Qty: 90 0RF lisinopril 2.5 mg tablet 2.5 mg PO DAILY 30 Days Qty: 30 3RF celecoxib 200 mg capsule 1 cap PO DAILY Discharge Orders: Discharge Order (Routine); Ordered 06/28/22 Ordered By: Christiano Woodard Diet: Diabetic diet Activity on Discharge: As tolerated Stand Alone Forms: Patient Portal Discharge page Care Plan Goals: use incentive spirometry/ ambulate as tolerated/ splint chest with pillow return to hospital with worsening shortness of breath, fever chills take Tylenol 3 times a day, increase dose of Celebrex to 1 tablet twice daily, take oxycodone 1 tablet every 4 hours as needed for his severe, take stool softeners and high-fiber diet, avoid constipation Health Concerns: take all home medications as before Plan of Treatment: outpatient follow-up with PCP Assessment: as per discharge summary
[2022-06-28] MEDS: oxyCODONE HCl Immed Release 5 MG TABLET PO (14:44)
--- NOTE | 2022-06-28 14:47 | MHC.CM.PN ---
YANN ADDRESSED, YELLOW COPY TO PATIENT, WHITE COPY TO FILE IN CHART TRINIDADIAN SPEAKING PATIENT LIVES WITH SPOUSE EDUCATED ON HCP, DECLINED TO COMPLETE ONE AT THIS TIME INDEPENDENT AT HOME AND COMMUNITY DENIES USE OF DME OR RECEIVING HOME SERVICES IFRAH TAVAREZ'Bettie X2 PFIZER PCP: [facility] WILL TRANSPORT D/C PLAN: HOME SELF-CARE
== END 2022-06-28 14:45 | disposition home or self-care (01) ==
LOC: HO.ED 06-28 02:55 → HO.EDOVER 06-28 04:38
PROVIDERS: Physician Assistant; Admitting Provider Internal Medicine; Emergency Provider Internal Medicine; PCP Nurse Practitioner Family; Visit Provider Hospitalist
DX: S22.41XA Multiple fractures of ribs, right side, initial encounter for closed fracture (principal); R07.89 Other chest pain; R07.81 Pleurodynia; M54.6 Pain in thoracic spine; I10 Essential (primary) hypertension; E11.9 Type 2 diabetes mellitus without complications; W01.0XXA Fall on same level from slipping, tripping and stumbling without subsequent striking against object, initial encounter; Y93.9 Activity, unspecified; Y92.009 Unspecified place in unspecified non-institutional (private) residence as the place of occurrence of the external cause; Y99.9 Unspecified external cause status; Z20.822 Contact with and (suspected) exposure to COVID-19; Z79.4 Long term (current) use of insulin; Z79.899 Other long term (current) drug therapy
CPT/HCPCS: 36415; 71101; 71260; 74177; 80048; 80053; 84484; 85025; 85610; 87635; 96374; 96375; 99218; 99284; J1170; J1650; J2270; Q9967

== ENCOUNTER 2022-08-16 09:56 | Outpatient (REF) | payer OTHER, SELFPAY ==
[2022-08-16 11:17] LABS: MANUAL DIFF FLAG NO
[2022-08-16 11:17] LABS: Appearance Urine Clear; Color Urine Yellow; Glucose Urine UA Negative (Negative); Leukocyte Esterase Urine Negative (Negative); Nitrite Urine Negative (Negative); Specific Gravity - Urine 1.025 (1.005-1.025); Urine Blood Negative (Negative); Urine Ketones Negative (Negative); Urine Protein Trace mg/dL (Neg-Trace)
[2022-08-16 11:21] LABS: Basophils Percent Auto 0.4 % (0-2); Eosinophils Absolute Auto 0.1 X10*3/uL (0.0-0.4); Eosinophils Percent Auto 1.8 % (0-4); Hemoglobin 15.4 g/dl (14.0-18.0); Imm Gran Abs Auto 0.01 X10*3/uL (0.00-0.03); Imm Gran Pct Auto 0.2 % (0.0-0.4); Lymphocytes Absolute Auto 1.1 X10*3/uL (1.2-4.9); Lymphocytes Percent Auto 20.7 % (20-40); Mean Corpuscular HGB Conc 32.8 g/dl (31.0-36.0); Mean Corpuscular Hemoglobin 28.3 pg (27.0-33.0); Mean Corpuscular Volume 86.2 fL (80.0-98.0); Mean Platelet Volume 10.5 fL (9.4-12.4); Monocytes Absolute Auto 0.7 X10*3/uL (0.1-1.2); Monocytes Percent Auto 13.2 % (2-11); Neutrophils Absolute Auto 3.5 x10*3/uL (2.0-8.3); Neutrophils Percent Auto 63.7 % (45-73); Platelet Count 208 X10*3/uL (160-400); Red Blood Count 5.45 X10*6/uL (4.60-5.80); Red Cell Distribution Width 14.3 % (11.0-16.0); White Blood Count 5.5 X10*3/uL (4.8-10.8)
[2022-08-16 11:33] LABS: Estimated Average Glucose 143 mg/dL; Hemoglobin A1c % 6.6 %
[2022-08-16 12:06] LABS: Alanine Aminotransferase 27 U/L (0-40); Albumin Level 4.4 g/dL (3.5-5.0); Alkaline Phosphatase 98 U/L (39-117); Anion Gap 17 (12-20); Aspartate Amino Transferase 18 U/L (5-37); Bilirubin Total 0.6 mg/dL (0.0-1.0); Blood Urea Nitrogen 14 mg/dL (9-16); Calcium 9.3 mg/dL (8.4-10.2); Carbon Dioxide 25 mmol/L (22-29); Chloride 103 mmol/L (96-108); Cholesterol 184 mg/dL; Estimated Glomerular Filt Rate > 60; Glucose Fasting 128 mg/dL (60-99); HDL Cholesterol 41 mg/dL; LDL Cholesterol Calculated 122 mg/dl; Potassium 4.6 mmol/L (3.3-5.1); Sodium 140 mmol/L (135-145); Total Protein 7.1 g/dL (6.5-8.0); Triglycerides 109 mg/dL
[2022-08-16 12:29] LABS: TSH reflex Free T4 2.29 uIU/mL (0.32-4.0)
== END 2022-08-16 09:57 | disposition home or self-care (01) ==
LOC: HO.HMGCLDS 09:56
PROVIDERS: PCP Nurse Practitioner Family; Visit Provider Nurse Practitioner Family
DX: E11.9 Type 2 diabetes mellitus without complications (principal)
CPT/HCPCS: 36415; 80053; 80061; 81003; 83036; 84443; 85025

== ENCOUNTER 2022-12-19 09:13 | Outpatient (REF) | payer OTHER, SELFPAY ==
[2022-12-19 11:28] LABS: MANUAL DIFF FLAG NO
[2022-12-19 11:33] LABS: Basophils Percent Auto 0.7 % (0-2); Eosinophils Absolute Auto 0.1 X10*3/uL (0.0-0.4); Eosinophils Percent Auto 2.4 % (0-4); Hematocrit 47.2 % (42.0-52.0); Hemoglobin 15.6 g/dl (14.0-18.0); Imm Gran Abs Auto 0.01 X10*3/uL (0.00-0.03); Imm Gran Pct Auto 0.2 % (0.0-0.4); Lymphocytes Absolute Auto 1.1 X10*3/uL (1.2-4.9); Lymphocytes Percent Auto 23.3 % (20-40); Mean Corpuscular HGB Conc 33.1 g/dl (31.0-36.0); Mean Corpuscular Hemoglobin 28.5 pg (27.0-33.0); Mean Corpuscular Volume 86.1 fL (80.0-98.0); Mean Platelet Volume 10.6 fL (9.4-12.4); Monocytes Absolute Auto 0.6 X10*3/uL (0.1-1.2); Monocytes Percent Auto 12.6 % (2-11); Neutrophils Absolute Auto 2.8 x10*3/uL (2.0-8.3); Neutrophils Percent Auto 60.8 % (45-73); Platelet Count 216 X10*3/uL (160-400); Red Blood Count 5.48 X10*6/uL (4.60-5.80); Red Cell Distribution Width 13.3 % (11.0-16.0); White Blood Count 4.5 X10*3/uL (4.8-10.8)
[2022-12-19 11:49] LABS: Estimated Average Glucose 154 mg/dL
[2022-12-19 11:50] LABS: Appearance Urine Clear; Color Urine Yellow; Glucose Urine UA Negative (Negative); Leukocyte Esterase Urine Negative (Negative); Nitrite Urine Negative (Negative); Specific Gravity - Urine 1.025 (1.005-1.025); Urine Blood Negative (Negative); Urine Ketones Negative (Negative); Urine Protein Trace mg/dL (Neg-Trace)
[2022-12-19 11:53] LABS: Alanine Aminotransferase 27 U/L (0-40); Albumin Level 4.3 g/dL (3.5-5.0); Alkaline Phosphatase 91 U/L (39-117); Anion Gap 11 (12-20); Aspartate Amino Transferase 20 U/L (5-37); Bilirubin Total 0.6 mg/dL (0.0-1.0); Blood Urea Nitrogen 14 mg/dL (9-16); Carbon Dioxide 27 mmol/L (22-29); Chloride 105 mmol/L (96-108); Cholesterol 175 mg/dL; Estimated Glomerular Filt Rate > 60; Glucose Fasting 126 mg/dL (60-99); HDL Cholesterol 36 mg/dL; LDL Cholesterol Calculated 124 mg/dl; Potassium 4.5 mmol/L (3.3-5.1); Sodium 138 mmol/L (135-145); Total Protein 6.6 g/dL (6.5-8.0); Triglycerides 78 mg/dL
[2022-12-19 12:11] LABS: Prostate Specific Antigen Scr 0.92 ng/mL (<0.05-4.0); TSH reflex Free T4 2.21 uIU/mL (0.32-4.0)
== END 2022-12-19 09:14 | disposition home or self-care (01) ==
LOC: HO.HMGCLDS 09:13
PROVIDERS: PCP Nurse Practitioner Family; Visit Provider Nurse Practitioner Family
DX: Z00.00 Encounter for general adult medical examination without abnormal findings (principal); E11.9 Type 2 diabetes mellitus without complications; Z12.5 Encounter for screening for malignant neoplasm of prostate
CPT/HCPCS: 36415; 80053; 80061; 81003; 83036; 84153; 84443; 85025

== ENCOUNTER 2023-05-15 08:11 | Outpatient (REF) | payer OTHER, SELFPAY ==
[2023-05-15 11:12] LABS: MANUAL DIFF FLAG NO
[2023-05-15 11:22] LABS: Appearance Urine Clear; Color Urine Yellow; Glucose Urine UA Negative (Negative); Leukocyte Esterase Urine Negative (Negative); Nitrite Urine Negative (Negative); Urine Blood Negative (Negative); Urine Ketones Negative (Negative); Urine Protein Negative (Neg-Trace)
[2023-05-15 11:36] LABS: Basophils Absolute Auto 0.1 X10*3/uL (0.0-0.2); Basophils Percent Auto 0.8 % (0-2); Eosinophils Absolute Auto 0.1 X10*3/uL (0.0-0.4); Eosinophils Percent Auto 1.8 % (0-4); Hematocrit 48.2 % (42.0-52.0); Hemoglobin 15.9 g/dl (14.0-18.0); Imm Gran Abs Auto 0.03 X10*3/uL (0.00-0.03); Imm Gran Pct Auto 0.5 % (0.0-0.4); Lymphocytes Absolute Auto 1.3 X10*3/uL (1.2-4.9); Mean Corpuscular Hemoglobin 28.4 pg (27.0-33.0); Mean Corpuscular Volume 86.2 fL (80.0-98.0); Monocytes Absolute Auto 0.9 X10*3/uL (0.1-1.2); Monocytes Percent Auto 13.1 % (2-11); Neutrophils Absolute Auto 4.1 x10*3/uL (2.0-8.3); Neutrophils Percent Auto 63.8 % (45-73); Platelet Count 206 X10*3/uL (160-400); Red Blood Count 5.59 X10*6/uL (4.60-5.80); White Blood Count 6.5 X10*3/uL (4.8-10.8)
[2023-05-15 11:42] LABS: Estimated Average Glucose 146 mg/dL; Hemoglobin A1c % 6.7 %
[2023-05-15 12:06] LABS: Alanine Aminotransferase 21 U/L (0-40); Albumin Level 4.4 g/dL (3.5-5.0); Alkaline Phosphatase 82 U/L (39-117); Anion Gap 14 (12-20); Aspartate Amino Transferase 21 U/L (5-37); Bilirubin Total 0.8 mg/dL (0.0-1.0); Blood Urea Nitrogen 12 mg/dL (9-16); Calcium 9.8 mg/dL (8.4-10.2); Carbon Dioxide 24 mmol/L (22-29); Chloride 103 mmol/L (96-108); Cholesterol 229 mg/dL; Estimated Glomerular Filt Rate > 60; Glucose Fasting 132 mg/dL (60-99); HDL Cholesterol 44 mg/dL; LDL Cholesterol Calculated 158 mg/dl; Sodium 137 mmol/L (135-145); Total Protein 7.2 g/dL (6.5-8.0); Triglycerides 137 mg/dL
[2023-05-15 12:07] LABS: TSH reflex Free T4 2.79 uIU/mL (0.32-4.0)
[2023-05-15 12:16] LABS: Creatinine Urine 210.72 mg/dL; Microalbum/Creatinine Ratio Ur 8.5 ug/mg cr
== END 2023-05-15 08:12 | disposition home or self-care (01) ==
LOC: HO.HMGCLDS 08:11
PROVIDERS: PCP Nurse Practitioner Family; Visit Provider Nurse Practitioner Family
DX: E11.9 Type 2 diabetes mellitus without complications (principal)
CPT/HCPCS: 36415; 80053; 80061; 81003; 82043; 83036; 84443; 85025

== ENCOUNTER 2023-07-26 08:19 | Outpatient (AMB) | payer OTHER, SELFPAY ==
--- NOTE | 2023-07-26 08:53 | A.OFFPC_ITS ---
Vital Signs 07/26/23 08:54 Height 5 ft 7 in Weight 189 lb 4 oz BMI 29.6 BP 120/78 Blood Pressure Location Lt brachial Position Sitting Pulse 68 Pulse Source Pulse Oximeter Pulse Oximetry (%) 96 Oxygen Delivery Method Room Air Intake Visit Reasons: Check Right hand pain Allergies No Known Allergies Allergy (Verified 07/26/23 08:55) Tobacco use date assessed: 07/26/23 Dental Screening Dental Screen Date: 07/26/23 Did you have a dental visit in the last 12 months?: Yes Did you have a dental problem in the last 6 months where you did not have access to dental care?: No Was dental information given to patient?: Patient has dentist HPI Check Right hand pain HPI Details Pt is a diabetic, on an VICENTE and a statin. Last A1C was 6.7, microalbumin is up to date. Denies polyuria, polydipsia, and neuropathy. Pt denies any signs and symptoms of hypoglycemia and does know how to correct it. Due for eye exam, will refer. Pt reports a nodule to his right palm that is tender. Will refer to ortho (hand specialist). denies flexion of finger PFSH Medical History Diabetes Sleep apnea Surgical History No pertinent past surgical history Family History Father HTN (hypertension) Diabetes mellitus Mother Asthma Mental health disorder Brother No problems noted. Brother Substance use disorder Son No problems noted. Sister Mental health disorder Sister No problems noted. Son No problems noted. 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 Dago Glover, Melissa Quintero, Sukumar Huang and colleagues, with an educational queta from [employer]. Review of Systems Const Reports as per HPI Physical exam (Primary Care) Vital Signs: Last Vital Signs Pulse 68 07/26/23 08:54 BP 120/78 07/26/23 08:54 Pulse Ox 96 07/26/23 08:54 Oxygen Delivery Method Room Air 07/26/23 08:54 BMI result Body Mass Index 29.6 Tobacco/Smoking Status: Tobacco use Status Tobacco use date assessed 07/26/23 07/26/23 08:58 Patient Tobacco Use Status Never used Tobacco 07/26/23 08:58 e-Cigarette/Vaping Use Never Used 07/26/23 08:58 Thrive Assessment: Date of Thrive Assessment Date Thrive assessed 03/08/23 07/26/23 08:58 Const General: cooperative Orientation/consciousness: patient oriented x3 Resp Effort & Inspection: normal respiratory effort Auscultation: clear to auscultation bilaterally Cardio Rate: regular rate Rhythm: regular rhythm Heart sounds: S1 normal heart sound present and S2 normal heart sound present Neuro General: patient oriented x3 Extrem Other: nodule noted to right palm just inferior to 3rd finger, TTP, no finger flexion related to nodule, bilat feet: + sensation with use of monofilament, feet intact without lesions Psych Appearance: grossly normal Mental Status: mental status grossly normal Speech and movement: Normal speech and movement present Affect: normal affect Attitude: cooperative Thought process: Normal thought process present Thought content: Normal thought content present Insight: Good insight present (Psych) Judgement: Good judgement present (Psych) Assessment and Plan Assessment & Plan (1) Diabetes: Code(s): E11.9 - Type 2 diabetes mellitus without complications Plan: Referred to optometry (2) Palmar nodule: Code(s): R22.30 - Localized swelling, mass and lump, unspecified upper limb Plan: Referred to ortho Plan The patient agreed to the use of a senior medical transcriptionist for this encounter. Scribed for JORDEN Carrillo by Debora Hanson senior medical transcriptionist, on 07/26/2023 at 09:05 EST. Orders: Referrals Optometry Referral E11.9 - Type 2 diabetes mellitus without complications Orthopedics Referral R22.30 - Localized swelling, mass and lump, unspecified upper limb Coding Level of Care Code Est Pt Level 3 (74102) Diagnoses Diabetes E11.9 Palmar nodule R22.30
[2023-07-26 08:54] VITALS: BP 120/78; PULSE 68; O2SAT 96; BMI 29.6
== END 2023-07-26 13:03 | disposition home or self-care (01) ==
PROVIDERS: PCP Nurse Practitioner Family; Visit Provider Nurse Practitioner Family
DX: E11.9 Type 2 diabetes mellitus without complications (principal); R22.30 Localized swelling, mass and lump, unspecified upper limb
CPT/HCPCS: 99213

== ENCOUNTER 2023-08-21 13:06 | Outpatient (AMB) | payer OTHER, SELFPAY ==
--- NOTE | 2023-08-21 13:35 | A.OFFVIS_ITS ---
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 States he has pain in his volar aspect of hand. States he feels a small mass that is causing him pain when he holds on to a item tightly in his hand. At times his hands cramps up causing stiffness. Denies injury, numbness. Patient mentioned his middle finger locks and has worsen in the last year. Denies injection or use of brace. Patient is diabetic A1C 6.7. last done 05/15/23. 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 He complains of his hand cramping up at times and says when he cramps all his fingers are stuck down and are difficult to move. His middle finger bothers him the most. He also has a spot of increased tenderness in his palm, near his middle finger. This causes him more pain He denies any numbness or tingling. He is a Diabetic, and says this is well-controlled [facility] Medical History Diabetes Sleep apnea Surgical History No pertinent past surgical history Family History Father HTN (hypertension) Diabetes mellitus Mother Asthma Mental health disorder Brother No problems noted. Brother Substance use disorder Son No problems noted. Sister Mental health disorder Sister No problems noted. Son No problems noted. 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 Cognitive needs: No Hearing needs: No Vision needs: No Review of Systems Const All systems reviewed & are unremarkable except as noted in HPI and below Physical Exam Vital Signs: BMI result Body Mass Index 29.6 Const General: cooperative, healthy appearing and no acute distress Orientation/consciousness: patient oriented x3 HEENT Head: Yes normocephalic and Yes atraumatic Eyes EOM: EOMs intact bilaterally Resp Effort & Inspection: normal respiratory effort and able to speak in complete sentences Cardio Jugular venous distension: no JVD Skin General skin exam: turgor normal Rashes: no rashes Neuro General: patient oriented x3 Extrem Other: Evaluation of Right Upper Extremity: The patient is alert, oriented, and in no acute distress Neuro: Median, Ulnar, Radial nerves motor and sensory intact and sensation is normal to the tips of all digits Vascular: Cap refill brisk ROM: He can make a fist and extend all his digits No locking or catching seen today in clinic after having him make a fist several times in clinic Tender over the a1 amarjit of the middle finger Skin: No lacerations or abrasions. General: No Ecchymosis. No Erythema or evidence of infection. Psych Appearance: grossly normal Affect: normal affect Attitude: cooperative Office Procedures Fracture Care Details: No fracture, injection Fracture Billing Code: Fracture Billing Code Assessment & Plan Assessment & Plan (1) Trigger middle finger of right hand: Code(s): M65.331 - Trigger finger, right middle finger (2) Diabetes: Code(s): E11.9 - Type 2 diabetes mellitus without complications Plan Assessment & Plan: 1. Possible right middle finger trigger finger Some of his history sounds perhaps like cramping in his hand, but he is tender over the A1 amarjit. I educated him about this condition I discussed operative and non-operative treatment options I recommend an injection for both diagnostic an treatment purposes Injection #1: The risks and benefits of a steroid injection including but not limited to risk of damage to blood vessels, nerves, tendons, infection, skin bleaching, failure to improve symptoms, increased pain, and possible need for further injections or other intervention were discussed with the patient and the patient wishes to proceed with the steroid injection. Once consent was obtained, I sterilely prepped the area over the A1 amarjit of the flexor tendon sheath of the Right middle finger. I then injected the flexor tendon sheath with a combination of 1 mL of dexamethasone (4mg/ml), and 1% lidocaine. The patient tolerated the procedure well with no complications. There was no locking or catching after the injection before leaving clinic today If the patient continues to have locking and catching 4-6 weeks following this injection, they may call to schedule appointment to discuss alternative treatment options Follow-up prn Scribed for Magdalena Lara MD by Robert Lim, medical delivery driver, on 08/21/23 at 2:00 PM, EST. Coding Level of Care Code New Pt Level 3 (55698) Diagnoses Trigger middle finger of right hand M65.331 Diabetes E11.9 CPT Codes Fracture Care - Fracture Billing Code: Fracture Billing Code ([id number])
[2023-08-21 13:36] VITALS: BMI 29.6
== END 2023-08-21 14:34 | disposition home or self-care (01) ==
PROVIDERS: PCP Nurse Practitioner Family; Visit Provider Orthopaedic Surgery
DX: M65.331 Trigger finger, right middle finger (principal)
CPT/HCPCS: 20550; 99204

== ENCOUNTER → 2023-08-21 13:06 | Outpatient (BNVA) | payer OTHER, SELFPAY | PROVIDERS: PCP Nurse Practitioner Family; Visit Provider Orthopaedic Surgery | DX: M65.331 Trigger finger, right middle finger (principal); E11.9 Type 2 diabetes mellitus without complications | CPT/HCPCS: 20550; J1100 ==

== ENCOUNTER 2023-11-21 10:41 | Outpatient (AMB) | payer MEDICARE, SELFPAY ==
--- NOTE | 2023-11-21 10:50 | MHC.PC.OV ---
Vital Signs 11/21/23 10:55 Height 5 ft 7 in Weight 191 lb BMI 29.9 BP 120/88 Blood Pressure Location Rt brachial Position Sitting Pulse 76 Pulse Source Pulse Oximeter Pulse Oximetry (%) 98 Oxygen Delivery Method Room Air Intake Visit Reasons: Annual PE Intake Note: Patient here for physical exam. pt states he has not been taking any of his meds and needs refill on celebrex. Allergies No Known Allergies Allergy (Verified 11/21/23 10:56) Medication List - Last Reconciled 11/21/23 by JORDEN Thomas acetaminophen (Tylenol Extra Strength) 500 mg PO Q8H alcohol swabs (Alcohol Prep Pads) 1 pad topical TID 30 days atorvastatin 40 mg PO BEDTIME 90 days blood sugar diagnostic (FreeStyle Lite Strips) test BS 3 times daily blood-glucose meter (FreeStyle Lite Meter kit) test BS 3 times daily celecoxib 200 mg PO DAILY PRN 30 days lancets (FreeStyle Lancets) test BS 3 times daily lisinopril 2.5 mg PO DAILY 30 days metformin ER 500 mg PO DAILY pantoprazole 40 mg PO DAILY 90 days Tobacco use date assessed: 11/21/23 Dental Screening Dental Screen Date: 11/21/23 Did you have a dental visit in the last 12 months?: Yes Did you have a dental problem in the last 6 months where you did not have access to dental care?: No Was dental information given to patient?: Patient has dentist HPI Annual PE HPI Details Pt is here for a PE. Will order labs. Colon screen is up to date. Due for PSA next month, will order. Denies dribbling with urination, weak stream, does report frequent nocturia (3 times per night). Refuses NOREEN today. Pt is a diabetic, on an VICENTE and a statin. A1C in office today is 7.5. Microalbumin is up to date. Denies polyuria, polydipsia, and neuropathy. Pt denies any signs and symptoms of hypoglycemia and does know how to correct it. Will start metformin ER 500mg. Pt reports that he has been eating a lot of bread, encouraged him to decrease this. Informed pt that he can obtain his pneumonia vaccine at his pharmacy. [facility] Medical History Diabetes Sleep apnea Surgical History No pertinent past surgical history Family History Father HTN (hypertension) Diabetes mellitus Mother Asthma Mental health disorder Brother No problems noted. Brother Substance use disorder Son No problems noted. Sister Mental health disorder Sister No problems noted. Son No problems noted. 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 How often do you have a drink containing alcohol?: Monthly or less 2. How many drinks containing alcohol do you have on a typical day when you are drinking?: 1 or 2 3. How often do you have six or more drinks on one occasion?: Never Total Score: 1 MADAI-7 AMB Questionnaire MADAI-7 Date MADAI - 7 assessed: 03/08/23 Feeling nervous, anxious, or on edge: 1 = Several days Not being able to stop or control worryin = Not at all Worrying too much about different things: 1 = Several days Trouble relaxin = More than half the days Being so restless that it is hard to sit still: 1 = Several days Becoming easily annoyed or irritable: 1 = Several days Feeling afraid as if something awful might happen: 1 = Several days Total MADAI-7 score (0-4 normal; 5-9 mild; 10-14 moderate; 15-21 severe): 7 Source: Developed by Drs. Dago Glover, Melissa Quintero, Sukumar Huang and colleagues, with an educational queta from [employer]. Review of Systems Const Denies chills and Denies fever(s) Eyes Denies blurry vision ENT Denies vertigo, Denies dizziness and Denies sore throat Card Denies chest pain at rest, Denies chest pain with activity, Denies diaphoresis, Denies dyspnea and Denies dyspnea on exertion Resp Denies cough, Denies dyspnea, Denies dyspnea on exertion and Denies wheezing GI Denies abdominal pain, Denies melena, Denies hematochezia, Denies constipation, Denies diarrhea and Denies loose stools Denies hematuria Musc Denies numbness and Denies tingling Skin/Breast Denies lesions Neuro Denies vertigo, Denies dizziness, Denies numbness and Denies tingling Psych Denies anxiety, Denies depression, Denies homicidal ideation, Denies suicidal ideation and Denies other (substance abuse) Aller/Immun Denies wheezing Physical exam (Primary Care) Vital Signs: Last Vital Signs Pulse 76 11/21/23 10:55 BP 120/88 11/21/23 10:55 Pulse Ox 98 11/21/23 10:55 Oxygen Delivery Method Room Air 11/21/23 10:55 BMI result Body Mass Index 29.9 Tobacco/Smoking Status: Tobacco use Status Tobacco use date assessed 11/21/23 11/21/23 11:00 Patient Tobacco Use Status Never used Tobacco 11/21/23 10:51 e-Cigarette/Vaping Use Never Used 11/21/23 10:51 Thrive Assessment: Date of Thrive Assessment Date Thrive assessed 03/08/23 11/21/23 10:51 Const General: cooperative Nutritional Appearance: well nourished Orientation/consciousness: patient oriented x3 HENMT Head: Yes normal to inspection, Yes normocephalic and Yes atraumatic Ears: TM's normal bilaterally Eyes General: appearance normal, both eyes and all related structures Alignment and Position: alignment normal and position normal Neck Neck: Yes normal visual inspection and Yes no lymphadenopathy Thyroid: Thyroid normal Resp Effort & Inspection: normal respiratory effort Auscultation: clear to auscultation bilaterally Cardio Rate: regular rate Rhythm: regular rhythm Heart sounds: S1 normal heart sound present, S2 normal heart sound present and no murmurs GI Palpation (GI): Soft to palpation and nontender Auscultation: normal bowel sounds Other: refused NOREEN Male General Exam: Yes normal external exam Penis: normal penis Scrotum: scrotum normal, testes descended bilaterally and no inguinal hernias Testes: no testicular mass Skin Rashes: no rashes Neuro General: patient oriented x3, moves all extremities, no focal motor deficits and deep tendon reflexes 2+ bilaterally Romberg Test: Negative Extrem Other: bilat feet: + sensation with use of monofilament Psych Appearance: grossly normal Mental Status: mental status grossly normal Speech and movement: Normal speech and movement present Affect: normal affect Attitude: cooperative Thought process: Normal thought process present Thought content: Normal thought content present Insight: Good insight present (Psych) Judgement: Good judgement present (Psych) Results AMB Hemoglobin A1c AMB Hemoglobin A1c 7.5 % Last Edit by JANESSA Renee on 11/21/23 11:21 Assessment and Plan Assessment & Plan (1) Diabetes: Code(s): E11.9 - Type 2 diabetes mellitus without complications Plan: Labs ordered (2) Physical exam: Code(s): Z00.00 - Encounter for general adult medical examination without abnormal findings Plan: Labs ordered (3) Screening PSA (prostate specific antigen): Code(s): Z12.5 - Encounter for screening for malignant neoplasm of prostate Plan: PSA ordered Plan The patient agreed to the use of a director of medical staff services for this encounter. Scribed for JORDEN Carrillo by Debora Hanson director of medical staff services, on 11/21/2023 at 11:10 EST. Orders: Orders Complete Blood Count Auto Diff Today E11.9 - Type 2 diabetes mellitus without complications, Z00.00 - Encounter for general adult medical examination without abnormal findings TSH reflex Free T4 Today E11.9 - Type 2 diabetes mellitus without complications, Z00.00 - Encounter for general adult medical examination without abnormal findings Prostate Specific Antigen Scr Today Z12.5 - Encounter for screening for malignant neoplasm of prostate AMB Hemoglobin A1c Today E11.9 - Type 2 diabetes mellitus without complications Comprehensive [place]. Panel Fast Today E11.9 - Type 2 diabetes mellitus without complications, Z00.00 - Encounter for general adult medical examination without abnormal findings UA CC w/rflx Micro + Cult Today E11.9 - Type 2 diabetes mellitus without complications, Z00.00 - Encounter for general adult medical examination without abnormal findings Lipid Panel Today E11.9 - Type 2 diabetes mellitus without complications, Z00.00 - Encounter for general adult medical examination without abnormal findings Medications: New metformin ER 500 mg PO DAILY 90 tabs 0RF Coding Level of Care Code Est Pt Prev Care 40-64y(57256) Diagnoses Diabetes E11.9 Physical exam Z00.00 Screening PSA (prostate specific antigen) Z12.5
[2023-11-21 10:55] VITALS: BP 120/88; PULSE 76; O2SAT 98; BMI 29.9
== END 2023-11-21 11:33 | disposition home or self-care (01) ==
PROVIDERS: Visit Provider Nurse Practitioner Family
DX: E11.9 Type 2 diabetes mellitus without complications (principal); Z00.00 Encounter for general adult medical examination without abnormal findings; Z12.5 Encounter for screening for malignant neoplasm of prostate
CPT/HCPCS: 83036; 99396

== ENCOUNTER 2024-01-21 07:47 | Outpatient (AMB) | payer MEDICARE, SELFPAY ==
--- NOTE | 2024-01-21 08:06 | MHC.OFFVIS ---
Intake Vital Signs 01/21/24 08:12 Height 5 ft 7 in Weight 193 lb 4 oz BMI 30.3 BP 132/80 Blood Pressure Location Lt brachial Position Sitting Pulse 75 Pulse Source Pulse Oximeter Pulse Oximetry (%) 96 Oxygen Delivery Method Room Air Intake Visit Reasons: INP-MIGUEL - CONF w/address Intake Note: Patient presents for MIGUEL. Allergies No Known Allergies Allergy (Verified 01/21/24 08:10) HPI HPI Comments History of Present Illness Details 63 y/o male patient presents for new in-person visit to manage sleep apnea. Pt reports he was diagnosed with MIGUEL about 20 years ago. He used CPAP only 1-2 years. Pt reports that he gained more than 40 lb since the last sleep study. Pt reports loud snoring, witnessed apnea spells, needs to sleep sit up position to breathe better. Sleep questionnaire: Have you ever been diagnosed with a sleep disorder? Yes, MIGUEL. Have you ever had a sleep study in the past? Yes, about 20 years ago. Have you ever been treated for a sleep disorder? Yes, CPAP for 1-2 years. Do you take medications for a sleep disorder? No. Do you snore? Yes. Do you wake up gasping at night? Yes. Do you have episodes of apneas? Yes. If yes, are they witnessed? Yes, by . Do you have episodes of nocturnal chest pain or dyspnea? Yes. Do you have difficulty initiating sleep? Yes. Do you have difficulty maintaining sleep? Yes. Do you wake up tired? Yes, every day. Do you have headaches upon awakening? Not really. Do you wake up with dry mouth or throat? Yes. Do you have GERD? Yes. Do you have nocturia? Yes. Do you have nocturnal leg cramps? Yes. Do you have symptoms of restless legs? Yes. Do you act out your dreams? No. Sleep hygiene questionnaire: What is your usual sleep routine? Usual bedtime is at 11 pm; Usual wake up time is at 5 am. Do you take naps? No. Is your sleep environment cool, dark, and quiet? Yes. Do you exercise? Yes, walking every day. Do you take caffeine or other stimulants? Coffee in the morning. Do you use electronics in bed? Yes. What is your work schedule? Retired. Hypersomnolence questionnaire: Do you have daytime tiredness or fatigue? Yes. Do you easily fall asleep when inactive? Yes. Have you ever had episodes of sudden weakness? No. Have you ever had episodes of sudden weakness associated with strong emotions? No. [facility] Medical History (Updated 01/21/24 @ 08:31 by Angela Randolph CNP) Sleep apnea Diabetes Surgical History No pertinent past surgical history Family History Father HTN (hypertension) Diabetes mellitus Mother Asthma Mental health disorder Brother No problems noted. Brother Substance use disorder Son No problems noted. Sister Mental health disorder Sister No problems noted. Son No problems noted. 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 Cognitive needs: No Hearing needs: No Vision needs: No Review of Systems Const All systems reviewed & are unremarkable except as noted in HPI and below Physical Exam Vital Signs: Last Vital Signs Pulse 75 01/21/24 08:12 BP 132/80 01/21/24 08:12 Pulse Ox 96 01/21/24 08:12 Oxygen Delivery Method Room Air 01/21/24 08:12 BMI result Body Mass Index 30.3 Const General: cooperative and tired appearing Nutritional Appearance: obese Orientation/consciousness: patient oriented x3 Neck Neck: Yes full ROM and Yes supple Resp Effort & Inspection: normal respiratory effort and able to speak in complete sentences Neuro General: patient oriented x3, gait normal and moves all extremities Cranial nerves: Yes CN's II-XII intact bilaterally Gait exam (Neuro): Normal gait present Motor exam (neuro): 5/5 motor strength present throughout Psych Appearance: grossly normal Mental Status: mental status grossly normal Affect: normal affect Attitude: cooperative Assessment & Plan Assessment & Plan (1) Sleep apnea: Code(s): G47.30 - Sleep apnea, unspecified (2) Daytime hypersomnia: Code(s): G47.10 - Hypersomnia, unspecified Plan Pt is advised to undergo home sleep study to assess for sleep apnea. Will f/u with pt after study to discuss results and appropriate treatment options. Sleep hygiene education provided, wt reduction advised. Pt to call with any worsening concerns or questions. Orders: Orders RT home sleep study Today G47.10 - Hypersomnia, unspecified, G47.30 - Sleep apnea, unspecified Coding Level of Care Code New Pt Level 3 (76794) Diagnoses Sleep apnea G47.30 Daytime hypersomnia G47.10
[2024-01-21 08:12] VITALS: BP 132/80; PULSE 75; O2SAT 96; BMI 30.3
== END 2024-01-21 08:38 | disposition home or self-care (01) ==
PROVIDERS: PCP Nurse Practitioner Family; Visit Provider Nurse Practitioner Family
DX: G47.30 Sleep apnea, unspecified (principal); G47.10 Hypersomnia, unspecified
CPT/HCPCS: 99203

== ENCOUNTER → 2024-01-21 07:47 | Outpatient (BNVA) | payer MEDICARE, SELFPAY | PROVIDERS: PCP Nurse Practitioner Family; Visit Provider Nurse Practitioner Family | DX: G47.30 Sleep apnea, unspecified (principal); G47.10 Hypersomnia, unspecified | CPT/HCPCS: 99202 ==

== ENCOUNTER 2024-01-31 12:14 | Outpatient (AMB) | payer MEDICARE, SELFPAY ==
[2024-01-31 12:29] VITALS: BP 112/70; PULSE 80; TEMP 36.3; O2SAT 96; BMI 30.5
--- NOTE | 2024-01-31 12:29 | AM.OFFWIN_ITS ---
Intake Vital Signs 01/31/24 12:29 Height 5 ft 7 in Weight 195 lb BMI 30.5 BP 112/70 Blood Pressure Location Lt brachial Position Sitting Pulse 80 Pulse Source Pulse Oximeter Temp 97.3 F Temp Source Temporal Artery Scan Pulse Oximetry (%) 96 Oxygen Delivery Method Room Air Intake Visit Reasons: EP RT shoulder pain/neck Intake Note: pt is here today for rt shoulder pain started 3 days ago Patient Tobacco Use Status: Never used Tobacco Allergies No Known Allergies Allergy (Verified 01/31/24 12:34) Do you need a note to return to daycare/school/sports/work: No HPI EP RT shoulder pain/neck HPI Details This is a 63 year old male patient who presents to the [facility] today with a 3-4 day history of right anterior shoulder pain. He reports pain on the front aspect of his shoulder, which radiates up along right trapezius and to right side of neck. He reports he had a right shoulder injury about 20 years ago, however no new injury or trauma. He denies any radiation of pain down arm however feels his right hand strength is somewhat weaker. [facility] Medical History Sleep apnea Diabetes Surgical History No pertinent past surgical history Family History Father HTN (hypertension) Diabetes mellitus Mother Asthma Mental health disorder Brother No problems noted. Brother Substance use disorder Son No problems noted. Sister Mental health disorder Sister No problems noted. Son No problems noted. 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 Cognitive needs: No Hearing needs: No Vision needs: No Review of Systems Const All systems reviewed & are unremarkable except as noted in HPI and below Physical Exam Vital Signs: Last Vital Signs Temp 97.3 F 01/31/24 12:29 Pulse 80 01/31/24 12:29 BP 112/70 01/31/24 12:29 Pulse Ox 96 01/31/24 12:29 Oxygen Delivery Method Room Air 01/31/24 12:29 BMI result Body Mass Index 30.5 Const General: cooperative, healthy appearing and no acute distress Nutritional Appearance: average body habitus Neck Neck: Yes full ROM and Yes no lymphadenopathy Resp Effort & Inspection: normal respiratory effort Auscultation: clear to auscultation bilaterally Cardio Rate: regular rate Rhythm: regular rhythm Skin General skin exam: no rashes or lesions noted Neuro General: tone normal and deep tendon reflexes 2+ bilaterally Extrem General: Yes capillary refill normal and Yes no clubbing, cyanosis or edema Right upper extremity: no joint enlargement and shoulder/upper arm Details: normal to inspection, tenderness Location: of the A-C joint and abnormal ROM Details: pain with active ROM Details: in flexion (60-70 degrees) Psych Appearance: grossly normal Mental Status: mental status grossly normal Speech and movement: Normal speech and movement present Assessment & Plan Assessment & Plan (1) Right anterior shoulder pain: Code(s): M25.511 - Pain in right shoulder Plan: Patient has pain over right AC joint, primarily at anterior aspect. He has pain at 60 degrees flexion. XR was obtained today and was reviewed by this narrative writer. No acute findings on XR, however likely some degenerative AC joint changes. I suspect this is a rotator cuff strain however may represent a more advanced RT pathology given history of injury on that side. At this time, I suggested patient try a course of NSAIDs and muscle relaxers, so see if this provides any benefit. He is already on Celebrex, which I advised he continue taking daily. I will also start him on a short course of muscle relaxers, which we reviewed use, indications, and possible s/e of. We reviewed some gentle stretches/ROM exercised he can do at home, in addition to ice/heat and topical otc cream application. If his pain persists despite these measures, he may benefit from an ortho referral/evaluation, which can be placed by PCP if/when needed. He will be leaving for [place] next week but will be seeing PCP Toribio Schwartz when he returns in March. Patient and present at visit verbalize understanding and agree to plan. Orders: Orders XR shoulder RT min 2V Today M25.511 - Pain in right shoulder Coding Level of Care Code Est Pt Level 4 (49025) Diagnoses Right anterior shoulder pain M25.511
== END 2024-01-31 13:35 | disposition home or self-care (01) ==
PROVIDERS: PCP Nurse Practitioner Family; Visit Provider Nurse Practitioner Family
DX: M25.511 Pain in right shoulder (principal)
CPT/HCPCS: 99214

== ENCOUNTER 2024-01-31 13:04 | Outpatient (REF) | payer MEDICARE, SELFPAY ==
--- NOTE | ~2024-01-31 | XR_ITS ---
EXAMINATION: XR SHOULDER, RIGHT CLINICAL INFORMATION: Right shoulder pain. COMPARISON: 12/19/2011 TECHNIQUE: Three views of the right shoulder. FINDINGS: No fracture appreciated. Glenohumeral alignment is anatomic with normal joint space. Degenerative change of the acromioclavicular joint with inferior spurring. Soft tissues appear unremarkable. Mild degenerative changes of the incidentally visualized portion of the thoracic spine. XR/XR shoulder RT min 2V IMPRESSION: No acute finding.
== END 2024-01-31 13:05 | disposition home or self-care (01) ==
LOC: HO.HMGCX 13:04
PROVIDERS: PCP Nurse Practitioner Family; Visit Provider Nurse Practitioner Family
DX: M25.511 Pain in right shoulder (principal)
CPT/HCPCS: 73030

== ENCOUNTER → 2024-03-19 08:54 | Outpatient (REF) | payer MEDICARE, SELFPAY | LOC: HO.SL 08:54 | PROVIDERS: PCP Nurse Practitioner Family; Visit Provider Nurse Practitioner Family | DX: G47.33 Obstructive sleep apnea (adult) (pediatric) (principal); G47.30 Sleep apnea, unspecified; G47.10 Hypersomnia, unspecified | CPT/HCPCS: 95806 ==

== ENCOUNTER → 2024-03-19 09:04 | Outpatient (BNV) | payer MEDICARE, SELFPAY | PROVIDERS: PCP Nurse Practitioner Family; Visit Provider Internal Medicine | DX: G47.33 Obstructive sleep apnea (adult) (pediatric) (principal) | CPT/HCPCS: 95806 ==

== ENCOUNTER 2024-03-26 09:00 | Outpatient (AMB) | payer MEDICARE, SELFPAY ==
--- NOTE | 2024-03-26 09:26 | A.OFFPC_ITS ---
Vital Signs 03/26/24 09:28 Height 5 ft 7 in Weight 19 lb BMI 3.0 BP 120/78 Blood Pressure Location Rt brachial Position Sitting Pulse 72 Pulse Source Pulse Oximeter Pulse Oximetry (%) 98 Oxygen Delivery Method Room Air Intake Visit Reasons: 4 month follow up Intake Note: Patient here to f/u on diabetes Allergies No Known Allergies Allergy (Verified 03/26/24 09:57) Medication List - Last Reconciled 03/26/24 by JORDEN Thomas acetaminophen (Tylenol Extra Strength) 500 mg PO Q8H alcohol swabs (Alcohol Prep Pads) 1 pad topical TID 30 days atorvastatin 40 mg PO BEDTIME 90 days blood-glucose meter ([employer] Verio Reflect Meter) As directed celecoxib 200 mg PO DAILY PRN 30 days lisinopril 2.5 mg PO DAILY 30 days metformin ER 500 mg PO DAILY OneTouch Delica Plus Lancet (lancets) Test blood sugar once a day NS OneTouch Verio test strips (blood sugar diagnostic) Test blood sugar once a day NS pantoprazole 40 mg PO DAILY 90 days tizanidine 4 mg PO BEDTIME PRN 90 days Tobacco use date assessed: 11/21/23 Dental Screening Dental Screen Date: 11/21/23 HPI 4 month follow up HPI Details Pt is a diabetic, on an VICENTE and statin. A1C in office today is 7.3. Microalbumin is up to date. Denies polyuria, polydipsia, and neuropathy. Pt denies any signs and symptoms of hypoglycemia and does know how to correct it. Will increase metformin from 500mg daily to 500mg bid. Will also start jardiance 10mg. Encouraged pt to have labs drawn. Pt c/o increased allergy symptoms. Recommended OTC cetirizine. [facility] Medical History Sleep apnea Diabetes Surgical History No pertinent past surgical history Family History Father HTN (hypertension) Diabetes mellitus Mother Asthma Mental health disorder Brother No problems noted. Brother Substance use disorder Son No problems noted. Sister Mental health disorder Sister No problems noted. Son No problems noted. 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 47664 - PHQ-9 Billing: Patient declined-do not bill Source: Developed by Drs. Dago Glover, Sukumar Weller and colleagues, with an educational queta from [employer]. Thrive Questionnaire Date Thrive assessed: 03/08/23 MADAI-7 AMB Questionnaire MADAI-7 Date MADAI - 7 assessed: 03/08/23 Source: Developed by Drs. Dago Glover, Sukumar Weller and colleagues, with an educational queta from [employer]. MADAI-7 Assessment Billing MADAI-7 Assessment Tool: pt declined-do not bill Review of Systems Const Reports as per HPI Physical exam (Primary Care) Vital Signs: Last Vital Signs Pulse 72 03/26/24 09:28 BP 120/78 03/26/24 09:28 Pulse Ox 98 03/26/24 09:28 Oxygen Delivery Method Room Air 03/26/24 09:28 BMI result Body Mass Index 3.0 Tobacco/Smoking Status: Tobacco use Status Tobacco use date assessed 11/21/23 03/26/24 09:26 Patient Tobacco Use Status Never used Tobacco 03/26/24 09:26 e-Cigarette/Vaping Use Never Used 03/26/24 09:26 Thrive Assessment: Date of Thrive Assessment Date Thrive assessed 03/08/23 03/26/24 09:26 Const General: cooperative Orientation/consciousness: patient oriented x3 Resp Effort & Inspection: normal respiratory effort Auscultation: clear to auscultation bilaterally Cardio Rate: regular rate Rhythm: regular rhythm Heart sounds: S1 normal heart sound present and S2 normal heart sound present Neuro General: patient oriented x3 Extrem Other: bilat feet: + sensation with use of monofilament, feet intact Psych Appearance: grossly normal Mental Status: mental status grossly normal Speech and movement: Normal speech and movement present Affect: normal affect Attitude: cooperative Thought process: Normal thought process present Thought content: Normal thought content present Insight: Good insight present (Psych) Judgement: Good judgement present (Psych) Results AMB Hemoglobin A1c AMB Hemoglobin A1c 7.3 % Last Edit by JANESSA Renee on 03/26/24 10 :15 Assessment and Plan Assessment & Plan (1) Diabetes: Code(s): E11.9 - Type 2 diabetes mellitus without complications (2) Environmental allergies: Code(s): Z91.09 - Other allergy status, other than to drugs and biological substances Plan: cetirizine 20mg daily Plan The patient agreed to the use of a medical chief technician for this encounter. Scribed for JORDEN Carrillo by Debora Hanson medical chief technician, on 03/26/2024 at 10:00 EST. Orders: Orders AMB Hemoglobin A1c Today Z13.9 - Encounter for screening, unspecified Medications: New empagliflozin (Jardiance) 10 mg PO DAILY 90 tabs 0RF Changed From metformin ER 500 mg PO DAILY 90 tabs 1RF To metformin ER 500 mg PO BID 90 days 180 tabs 1RF Coding Level of Care Code Est Pt Level 3 (43601) Diagnoses Diabetes E11.9 Environmental allergies Z91.09
[2024-03-26 09:28] VITALS: BP 120/78; PULSE 72; O2SAT 98
== END 2024-03-26 10:14 | disposition home or self-care (01) ==
PROVIDERS: PCP Nurse Practitioner Family; Visit Provider Nurse Practitioner Family
DX: E11.9 Type 2 diabetes mellitus without complications (principal); Z91.09 Other allergy status, other than to drugs and biological substances
CPT/HCPCS: 83036; 99213

== ENCOUNTER 2024-03-26 10:14 | Outpatient (REF) | payer MEDICARE, SELFPAY ==
[2024-03-26 13:15] LABS: MANUAL DIFF FLAG NO
[2024-03-26 13:21] LABS: Basophils Percent Auto 0.6 % (0-2); Eosinophils Absolute Auto 0.2 X10*3/uL (0.0-0.4); Eosinophils Percent Auto 2.8 % (0-4); Hematocrit 46.5 % (42.0-52.0); Hemoglobin 15.3 g/dl (14.0-18.0); Imm Gran Abs Auto 0.03 X10*3/uL (0.00-0.03); Imm Gran Pct Auto 0.5 % (0.0-0.4); Lymphocytes Absolute Auto 1.4 X10*3/uL (1.2-4.9); Lymphocytes Percent Auto 21.2 % (20-40); Mean Corpuscular HGB Conc 32.9 g/dl (31.0-36.0); Mean Corpuscular Hemoglobin 28.8 pg (27.0-33.0); Mean Corpuscular Volume 87.6 fL (80.0-98.0); Mean Platelet Volume 10.7 fL (9.4-12.4); Monocytes Absolute Auto 1.1 X10*3/uL (0.1-1.2); Monocytes Percent Auto 17.5 % (2-11); Neutrophils Absolute Auto 3.7 x10*3/uL (2.0-8.3); Neutrophils Percent Auto 57.4 % (45-73); Platelet Count 255 X10*3/uL (160-400); Red Blood Count 5.31 X10*6/uL (4.60-5.80); Red Cell Distribution Width 13.8 % (11.0-16.0); White Blood Count 6.5 X10*3/uL (4.8-10.8)
[2024-03-26 13:36] LABS: Appearance Urine Clear; Color Urine Yellow; Glucose Urine UA Negative (Negative); Leukocyte Esterase Urine Negative (Negative); Nitrite Urine Negative (Negative); Urine Blood Negative (Negative); Urine Ketones Negative (Negative); Urine Protein Trace mg/dL (Neg-Trace)
[2024-03-26 13:40] LABS: Alanine Aminotransferase 25 U/L (0-40); Albumin Level 4.3 g/dL (3.5-5.0); Alkaline Phosphatase 113 U/L (39-117); Anion Gap 15 (12-20); Aspartate Amino Transferase 17 U/L (5-37); Bilirubin Total 0.4 mg/dL (0.0-1.0); Blood Urea Nitrogen 14 mg/dL (9-16); Calcium 9.8 mg/dL (8.4-10.2); Carbon Dioxide 26 mmol/L (22-29); Chloride 100 mmol/L (96-108); Cholesterol 153 mg/dL (<200); Estimated Glomerular Filt Rate > 60; Glucose Fasting 119 mg/dL (60-99); HDL Cholesterol 34 mg/dL (>40); LDL Cholesterol Calculated 98 mg/dL (<100); Potassium 4.2 mmol/L (3.3-5.1); Sodium 137 mmol/L (135-145); Total Protein 7.8 g/dL (6.5-8.0); Triglycerides 105 mg/dL (<150)
[2024-03-26 13:53] LABS: Prostate Specific Antigen Scr 1.16 ng/mL (<0.05-4.0)
[2024-03-26 13:57] LABS: TSH reflex Free T4 2.31 uIU/mL (0.32-4.0)
== END 2024-03-26 10:15 | disposition home or self-care (01) ==
LOC: HO.HMGCLDS 10:14
PROVIDERS: PCP Nurse Practitioner Family; Visit Provider Nurse Practitioner Family
DX: Z00.00 Encounter for general adult medical examination without abnormal findings (principal); E11.9 Type 2 diabetes mellitus without complications; Z12.5 Encounter for screening for malignant neoplasm of prostate
CPT/HCPCS: 36415; 80053; 80061; 81003; 84153; 84443; 85025

== ENCOUNTER → 2024-04-28 20:30 | Outpatient (REF) | payer MEDICARE, SELFPAY | LOC: HO.SL 20:30 | PROVIDERS: PCP Nurse Practitioner Family; Visit Provider Psychiatry & Neurology Neurology | DX: G47.33 Obstructive sleep apnea (adult) (pediatric) (principal) | CPT/HCPCS: 95811 ==

== ENCOUNTER → 2024-04-28 23:26 | Outpatient (BNV) | payer MEDICARE, SELFPAY | PROVIDERS: PCP Nurse Practitioner Family; Visit Provider Psychiatry & Neurology Neurology | DX: G47.33 Obstructive sleep apnea (adult) (pediatric) (principal) | CPT/HCPCS: 95811 ==

== ENCOUNTER 2024-07-15 10:27 | Outpatient (AMB) | payer MEDICARE, SELFPAY ==
[2024-07-15 10:41] VITALS: BP 130/82; PULSE 77; O2SAT 96; BMI 29.0
--- NOTE | 2024-07-15 10:41 | A.OFFPC_ITS ---
Vital Signs 07/15/24 10:41 Height 5 ft 7 in Weight 185 lb BMI 29.0 BP 130/82 Blood Pressure Location Rt brachial Position Sitting Pulse 77 Pulse Source Pulse Oximeter Pulse Oximetry (%) 96 Oxygen Delivery Method Room Air Intake Visit Reasons: 4M F/U DM Intake Note: Pt is here today for 4 month follow up dm Allergies No Known Allergies Allergy (Verified 07/15/24 11:59) Medication List - Last Reconciled 07/15/24 by JORDEN Thomas acetaminophen (Tylenol Extra Strength) 500 mg PO Q8H alcohol swabs (Alcohol Prep Pads) 1 pad topical TID 30 days atorvastatin 40 mg PO BEDTIME 90 days blood-glucose meter (Brain[employer]Touch Verio Reflect Meter) As directed celecoxib 200 mg PO DAILY PRN lisinopril 2.5 mg PO DAILY magnesium gluconate 30 mg PO DAILY metformin ER 500 mg PO BID 90 days OneTouch Delica Plus Lancet (lancets) Test blood sugar once a day NS OneTouch Verio test strips (blood sugar diagnostic) Test blood sugar once a day NS pantoprazole 40 mg PO DAILY 90 days tizanidine 4 mg PO BEDTIME PRN 90 days Tobacco use date assessed: 07/15/24 Fall risk assessment: No Falls in past year Last assessed Fall Risk: 07/15/24 Dental Screening Dental Screen Date: 07/15/24 Did you have a dental visit in the last 12 months?: Yes Did you have a dental problem in the last 6 months where you did not have access to dental care?: No Was dental information given to patient?: Patient has dentist HPI 4M F/U DM HPI Details Pt is a diabetic, on an VICENTE and a statin. A1C in office today is 6.6. Due for microalbumin. Denies polyuria, polydipsia, and neuropathy. Pt denies any signs and symptoms of hypoglycemia and does know how to correct it. Eye exam is scheduled. NOTE: requesting hearing testing [facility] Medical History Severe obstructive sleep apnea Sleep apnea Diabetes Surgical History No pertinent past surgical history Family History Father HTN (hypertension) Diabetes mellitus Mother Asthma Mental health disorder Brother No problems noted. Brother Substance use disorder Son No problems noted. Sister Mental health disorder Sister No problems noted. Son No problems noted. 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 1. Little interest or pleasure in doing things: several days 2. Feeling down, depressed, or hopeless: several days 3. Trouble falling or staying asleep, or sleeping too much: several days 4. Feeling tired or having little energy: several days 5. Poor appetite or overeating: not at all 6. Feeling bad about yourself - or that you are a failure or have let yourself or your family down: not at all 7. Trouble concentrating on things, such as reading the newspaper or watching television: several days 8. Moving or speaking so slowly that other people could have noticed. Or the opposite - being so fidgety or restless that you have been moving around a lot more than usual: several days 9. Thoughts that you would be better off or of hurting yourself in some way: not at all Total score: 6 Depression Screening Interpretation: Negative Depression Screening Done: Yes 01832 - PHQ-9 Billing: Yes Source: Developed by Drs. Dago Glover, Melissa Quintero, Sukumar Huang and colleagues, with an educational queta from [employer]. Thrive Questionnaire Date Thrive assessed: 07/15/24 I am a: Patient What is your living situation today?: I have a place to live, but I am worried about losing it in the future Within the past 12 months, did the food you bought not last and you didn't have the money to get more?: Often true Within the past 12 months, did you worry whether your food would run out before you got money to buy more?: Often true Do you have trouble paying for medicines?: Yes Do you have trouble getting transportation to medical appointments?: No Do you have trouble paying your heating and electricity bill?: No Do you have trouble taking care of your child, family member or friend?: No Do you have trouble with day-to-day activities such as bathing, preparing meals, shopping, managing finances, etc.?: No Are you currently unemployed and looking for a job?: No Are you interested in more education?: No Please select the resources that you would like help with: None Currently or been in a relationship where the following occur: I choose not to answer THRIVE Score: 3 AUDIT C Alcohol Use Questionnaire (AUDIT-C) 1. How often do you have a drink containing alcohol?: Monthly or less 2. How many drinks containing alcohol do you have on a typical day when you are drinking?: 1 or 2 3. How often do you have six or more drinks on one occasion?: Monthly Total Score: 3 Score Reviewed/Action Taken: Yes MADAI-7 AMB Questionnaire MADAI-7 Date MADAI - 7 assessed: 07/15/24 Feeling nervous, anxious, or on edge: 0 = Not at all Not being able to stop or control worryin = Several days Worrying too much about different things: 1 = Several days Trouble relaxin = Several days Being so restless that it is hard to sit still: 1 = Several days Becoming easily annoyed or irritable: 1 = Several days Feeling afraid as if something awful might happen: 1 = Several days Total MADAI-7 score (0-4 normal; 5-9 mild; 10-14 moderate; 15-21 severe): 6 Source: Developed by Drs. Dago Glover, Melissa Quintero, Sukumar Huang and colleagues, with an educational queta from [employer]. MADAI-7 Assessment Billing MADAI-7 Assessment Tool: MADAI-7 Assessment 33422 Review of Systems Const Reports as per HPI Physical exam (Primary Care) Vital Signs: Last Vital Signs Pulse 77 07/15/24 10:41 BP 130/82 07/15/24 10:41 Pulse Ox 96 07/15/24 10:41 Oxygen Delivery Method Room Air 07/15/24 10:41 BMI result Body Mass Index 29.0 Tobacco/Smoking Status: Tobacco use Status Tobacco use date assessed 07/15/24 07/15/24 10:43 Patient Tobacco Use Status Never used Tobacco 07/15/24 10:43 e-Cigarette/Vaping Use Never Used 07/15/24 10:43 PHQ-9: PHQ-9 Score PHQ-9: Total score 6 07/15/24 11:57 Depression Screening Interpretation: Negative Thrive Assessment: Date of Thrive Assessment Date Thrive assessed 07/15/24 07/15/24 10:43 Currently or been in a relationship where the following occur: I choose not to answer Const General: cooperative Orientation/consciousness: patient oriented x3 Resp Effort & Inspection: normal respiratory effort Auscultation: clear to auscultation bilaterally Cardio Rate: regular rate Rhythm: regular rhythm Heart sounds: S1 normal heart sound present and S2 normal heart sound present Neuro General: patient oriented x3 Extrem Other: bilat feet: + sensation with use of monofilament, feet intact Psych Appearance: grossly normal Mental Status: mental status grossly normal Speech and movement: Normal speech and movement present Affect: normal affect Attitude: cooperative Thought process: Normal thought process present Thought content: Normal thought content present Insight: Good insight present (Psych) Judgement: Good judgement present (Psych) Assessment and Plan Assessment & Plan (1) Loss of hearing: Code(s): H91.90 - Unspecified hearing loss, unspecified ear (2) Diabetes: Code(s): E11.9 - Type 2 diabetes mellitus without complications Plan: continue same routine. Pt is losing weight and feeling well Orders: Referrals Speech and Hearing Referral H91.90 - Unspecified hearing loss, unspecified ear Coding Level of Care Code Est Pt Level 3 (52266) Diagnoses Loss of hearing H91.90 Diabetes E11.9 Additional Codes MADAI-7 Assessment Billing - MADAI-7 Assessment Tool: MADAI-7 Assessment 60300 ([id number])
== END 2024-07-15 11:08 | disposition home or self-care (01) ==
PROVIDERS: PCP Nurse Practitioner Family; Visit Provider Nurse Practitioner Family
DX: E11.9 Type 2 diabetes mellitus without complications (principal); H91.93 Unspecified hearing loss, bilateral
CPT/HCPCS: 83036; 99213

== ENCOUNTER 2024-07-25 09:08 | Outpatient (REF) | payer MEDICARE, SELFPAY | END 2024-07-25 09:09 | disposition home or self-care (01) | LOC: HO.SH 09:08 | PROVIDERS: Visit Provider Nurse Practitioner Family | DX: Z01.118 Encounter for examination of ears and hearing with other abnormal findings (principal); H90.3 Sensorineural hearing loss, bilateral | CPT/HCPCS: 92557 ==

== ENCOUNTER 2024-08-14 09:11 | Outpatient (AMB) | payer MEDICARE, SELFPAY ==
--- NOTE | 2024-08-14 09:18 | A.OFFPC_ITS ---
Vital Signs 08/14/24 09:21 Height 5 ft 7 in Weight 183 lb BMI 28.7 BP 120/72 Blood Pressure Location Rt brachial Position Sitting Pulse 70 Pulse Source Pulse Oximeter Pulse Oximetry (%) 96 Intake Visit Reasons: Eyelid Surgery Allergies No Known Allergies Allergy (Verified 08/14/24 09:23) Tobacco use date assessed: 07/15/24 Fall risk assessment: No Falls in past year Last assessed Fall Risk: 08/14/24 Dental Screening Dental Screen Date: 07/15/24 HPI Eyelid Surgery HPI Details Pt is here for a pre-op evaluation. He is scheduled to undergo bilat upper eyelid ptosis surgery on 08/21. Will order labs and do an EKG in office. COUNTS INCLUDE 234 BEDS AT THE [facility] Medical History Severe obstructive sleep apnea Sleep apnea Diabetes Surgical History No pertinent past surgical history Family History Father HTN (hypertension) Diabetes mellitus Mother Asthma Mental health disorder Brother No problems noted. Brother Substance use disorder Son No problems noted. Sister Mental health disorder Sister No problems noted. Son No problems noted. 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 Cognitive needs: No Hearing needs: No Vision needs: No Questionnaire Thrive Questionnaire Date Thrive assessed: 07/15/24 I am a: Patient What is your living situation today?: I have a place to live, but I am worried about losing it in the future Within the past 12 months, did the food you bought not last and you didn't have the money to get more?: Often true Within the past 12 months, did you worry whether your food would run out before you got money to buy more?: Often true Do you have trouble paying for medicines?: Yes Do you have trouble getting transportation to medical appointments?: No Do you have trouble paying your heating and electricity bill?: No Do you have trouble taking care of your child, family member or friend?: No Do you have trouble with day-to-day activities such as bathing, preparing meals, shopping, managing finances, etc.?: No Are you currently unemployed and looking for a job?: No Are you interested in more education?: No Please select the resources that you would like help with: None Currently or been in a relationship where the following occur: I choose not to answer THRIVE Score: 3 MADAI-7 AMB Questionnaire MADAI-7 Date MADAI - 7 assessed: 07/15/24 Source: Developed by Drs. Dago Glover, Melissa Quintero, Sukumar Huang and colleagues, with an educational queta from [employer]. Review of Systems Const Denies chills and Denies fever(s) Eyes Denies blurry vision ENT Denies vertigo, Denies dizziness and Denies sore throat Card Denies chest pain at rest, Denies chest pain with activity, Denies diaphoresis, Denies dyspnea and Denies dyspnea on exertion Resp Denies cough, Denies dyspnea, Denies dyspnea on exertion and Denies wheezing GI Denies abdominal pain, Denies melena, Denies hematochezia, Denies constipation, Denies diarrhea and Denies loose stools Denies hematuria Musc Denies numbness and Denies tingling Skin/Breast Denies lesions Neuro Denies vertigo, Denies dizziness, Denies numbness and Denies tingling Psych Denies anxiety, Denies depression, Denies homicidal ideation, Denies suicidal ideation and Denies other (substance abuse) Aller/Immun Denies wheezing Physical exam (Primary Care) Vital Signs: Last Vital Signs Pulse 70 08/14/24 09:21 BP 120/72 08/14/24 09:21 Pulse Ox 96 08/14/24 09:21 BMI result Body Mass Index 28.7 Tobacco/Smoking Status: Tobacco use Status Tobacco use date assessed 07/15/24 08/14/24 09:18 Patient Tobacco Use Status Never used Tobacco 08/14/24 09:18 e-Cigarette/Vaping Use Never Used 08/14/24 09:18 Thrive Assessment: Date of Thrive Assessment Date Thrive assessed 07/15/24 08/14/24 09:18 Currently or been in a relationship where the following occur: I choose not to answer Const General: cooperative Nutritional Appearance: well nourished Orientation/consciousness: patient oriented x3 Neck Neck: Yes no lymphadenopathy Resp Effort & Inspection: normal respiratory effort Auscultation: clear to auscultation bilaterally Cardio Rate: regular rate Rhythm: regular rhythm Heart sounds: S1 normal heart sound present, S2 normal heart sound present and no murmurs Neuro General: patient oriented x3 and moves all extremities Psych Appearance: grossly normal Mental Status: mental status grossly normal Speech and movement: Normal speech and movement present Affect: normal affect Attitude: cooperative Thought process: Normal thought process present Thought content: Normal thought content present Insight: Good insight present (Psych) Judgement: Good judgement present (Psych) Results AMB Hemoglobin A1c AMB Hemoglobin A1c 6.8 % Last Edit by Mathew Reilly CMA on 08/14/24 10: 28 Results Reviewed Results Reviewed: Laboratory Last Values Hgb A1c (Clinic) 6.8 % (4.0-6.0) H 08/14/24 10:27 Coding Level of Care Code Est Pt Prev Care 40-64y(02608) Diagnoses Pre-op evaluation Z01.818 Assessment & Plan Assessment & Plan (1) Pre-op evaluation: Code(s): Z01.818 - Encounter for other preprocedural examination Category: Medical Plan: EKG done in office, labs ordered Plan The patient agreed to the use of a medical laboratory assistant for this encounter. Scribed for NOAM Carrillo- by Debora Hanson medical laboratory assistant, on 08/14/2024 at 09:45 EST. Orders: Orders Comprehensive Met. Panel Today Z01.818 - Encounter for other preprocedural examination TSH reflex Free T4 Today Z01.818 - Encounter for other preprocedural examination UA CC w/rflx Micro + Cult Today Z01.818 - Encounter for other preprocedural examination AMB Hemoglobin A1c Today Z13.9 - Encounter for screening, unspecified Complete Blood Count Auto Diff Today Z01.818 - Encounter for other preprocedural examination
[2024-08-14 09:21] VITALS: BP 120/72; PULSE 70; O2SAT 96; BMI 28.7
== END 2024-08-14 09:49 | disposition home or self-care (01) ==
PROVIDERS: PCP Nurse Practitioner Family; Visit Provider Nurse Practitioner Family
DX: Z01.818 Encounter for other preprocedural examination (principal); Z13.9 Encounter for screening, unspecified

== ENCOUNTER → 2024-08-14 09:11 | Outpatient (BNVA) | payer MEDICARE, SELFPAY | PROVIDERS: PCP Nurse Practitioner Family; Visit Provider Nurse Practitioner Family | DX: Z01.818 Encounter for other preprocedural examination (principal); E11.9 Type 2 diabetes mellitus without complications; G47.33 Obstructive sleep apnea (adult) (pediatric) | CPT/HCPCS: 83036; 93005; 99212 ==

== ENCOUNTER 2024-08-14 09:54 | Outpatient (REF) | payer MEDICARE, SELFPAY ==
[2024-08-14 12:58] LABS: MANUAL DIFF FLAG NO
[2024-08-14 13:03] LABS: Basophils Percent Auto 0.7 % (0-2); Eosinophils Absolute Auto 0.1 X10*3/uL (0.0-0.4); Eosinophils Percent Auto 1.8 % (0-4); Hematocrit 50.8 % (42.0-52.0); Hemoglobin 16.8 g/dl (14.0-18.0); Imm Gran Abs Auto 0.02 X10*3/uL (0.00-0.03); Imm Gran Pct Auto 0.4 % (0.0-0.4); Lymphocytes Absolute Auto 1.3 X10*3/uL (1.2-4.9); Lymphocytes Percent Auto 22.2 % (20-40); Mean Corpuscular HGB Conc 33.1 g/dl (31.0-36.0); Mean Corpuscular Hemoglobin 29.1 pg (27.0-33.0); Mean Corpuscular Volume 87.9 fL (80.0-98.0); Mean Platelet Volume 11.8 fL (9.4-12.4); Monocytes Absolute Auto 0.6 X10*3/uL (0.1-1.2); Neutrophils Absolute Auto 3.6 x10*3/uL (2.0-8.3); Neutrophils Percent Auto 63.9 % (45-73); Platelet Count 142 X10*3/uL (160-400); Red Blood Count 5.78 X10*6/uL (4.60-5.80); Red Cell Distribution Width 13.8 % (11.0-16.0); White Blood Count 5.6 X10*3/uL (4.8-10.8)
[2024-08-14 13:20] LABS: Appearance Urine Clear; Color Urine Yellow; Glucose Urine UA 100 mg/dL (Negative); Leukocyte Esterase Urine Negative (Negative); Nitrite Urine Negative (Negative); Urine Blood Negative (Negative); Urine Ketones Negative (Negative); Urine Protein Negative (Neg-Trace)
[2024-08-14 13:30] LABS: Alanine Aminotransferase 23 U/L (0-40); Albumin Level 4.5 g/dL (3.5-5.0); Alkaline Phosphatase 85 U/L (39-117); Anion Gap 11 (12-20); Aspartate Amino Transferase 18 U/L (5-37); Bilirubin Total 0.5 mg/dL (0.0-1.0); Blood Urea Nitrogen 11 mg/dL (9-16); Calcium 9.8 mg/dL (8.4-10.2); Carbon Dioxide 29 mmol/L (22-29); Chloride 102 mmol/L (96-108); Estimated Glomerular Filt Rate > 60; Glucose Random 146 mg/dL (60-115); Potassium 4.3 mmol/L (3.3-5.1); Sodium 138 mmol/L (135-145); Total Protein 7.4 g/dL (6.5-8.0)
[2024-08-14 13:38] LABS: TSH reflex Free T4 1.78 uIU/mL (0.32-4.0)
== END 2024-08-14 09:55 | disposition home or self-care (01) ==
LOC: HO.HMGCLDS 09:54
PROVIDERS: PCP Nurse Practitioner Family; Visit Provider Nurse Practitioner Family
DX: Z01.812 Encounter for preprocedural laboratory examination (principal)
CPT/HCPCS: 36415; 80053; 81003; 84443; 85025

== ENCOUNTER 2024-08-19 08:08 | Outpatient (REF) | payer MEDICARE, SELFPAY ==
[2024-08-19 09:59] LABS: MANUAL DIFF FLAG NO
[2024-08-19 10:07] LABS: Basophils Percent Auto 0.7 % (0-2); Eosinophils Absolute Auto 0.1 X10*3/uL (0.0-0.4); Eosinophils Percent Auto 2.3 % (0-4); Hematocrit 49.6 % (42.0-52.0); Hemoglobin 16.1 g/dl (14.0-18.0); Imm Gran Abs Auto 0.02 X10*3/uL (0.00-0.03); Imm Gran Pct Auto 0.3 % (0.0-0.4); Lymphocytes Absolute Auto 1.7 X10*3/uL (1.2-4.9); Lymphocytes Percent Auto 28.6 % (20-40); Mean Corpuscular HGB Conc 32.5 g/dl (31.0-36.0); Mean Corpuscular Hemoglobin 28.8 pg (27.0-33.0); Mean Corpuscular Volume 88.7 fL (80.0-98.0); Mean Platelet Volume 10.8 fL (9.4-12.4); Monocytes Absolute Auto 0.9 X10*3/uL (0.1-1.2); Monocytes Percent Auto 15.4 % (2-11); Neutrophils Percent Auto 52.7 % (45-73); Platelet Count 191 X10*3/uL (160-400); Red Blood Count 5.59 X10*6/uL (4.60-5.80); Red Cell Distribution Width 13.9 % (11.0-16.0); White Blood Count 5.8 X10*3/uL (4.8-10.8)
== END 2024-08-19 08:09 | disposition home or self-care (01) ==
LOC: HO.HMGCLDS 08:08
PROVIDERS: PCP Nurse Practitioner Family; Visit Provider Nurse Practitioner Family
DX: D69.6 Thrombocytopenia, unspecified (principal)
CPT/HCPCS: 36415; 85025

== ENCOUNTER 2024-12-15 14:19 | Outpatient (AMB) | payer MEDICARE, SELFPAY ==
--- NOTE | 2024-12-15 14:23 | MHC.OFFVIS ---
Vital Signs 12/15/24 14:24 Height 5 ft 7 in Weight 188 lb BMI 29.4 BP 118/74 Blood Pressure Location Lt brachial Position Sitting Pulse 86 Pulse Source Pulse Oximeter Pulse Oximetry (%) 97 Oxygen Delivery Method Room Air Intake Visit Reasons: Follow Up - Conf Ssis Etl Developer Required: No Accompanied by: Spouse Allergies No Known Allergies Allergy (Verified 12/15/24 14:27) Medication List - Last Reconciled 12/15/24 by Galina Klein PA-C acetaminophen (Tylenol Extra Strength) 500 mg PO Q8H alcohol swabs (Alcohol Prep Pads) 1 pad topical TID 30 days atorvastatin 40 mg PO BEDTIME 90 days blood-glucose meter (OneTouch Verio Reflect Meter) As directed celecoxib 200 mg PO DAILY PRN cholecalciferol (vitamin D3) 25 mcg PO DAILY lisinopril 2.5 mg PO DAILY magnesium gluconate 30 mg PO DAILY metformin ER 500 mg PO DAILY [id number] 1 tab PO DAILY OneTouch Delica Plus Lancet (lancets) Test blood sugar once a day NS OneTouch Verio test strips (blood sugar diagnostic) Test blood sugar once a day NS pantoprazole 40 mg PO DAILY 90 days tizanidine 4 mg PO BEDTIME PRN 90 days HPI Comments Details: 64 y/o male patient presents for sleep apnea evaluation. He was diagnosed with MIGUEL and started using CPAP about 20 years ago, he has gained over 40lbs since his last study. His complaints of his loud snoring and witnessed apneas, he sits up and positions himself to breath better. Since using his CPAP his quality of sleep has improved, however the pressures are so intense for him, they dry out his mouth. His teeth are very sensitive to the pressures and he stays up all night due to the sudden increases in pressures overnight. He has fragmented sleep and falls asleep during the daytime as he has hypersomnia. He feels dizzy at times with Vertigo, and says his BP and Blood sugar is controlled, he thinks it is the lack of sleep. He denies falls, recently had surgical procedure bilateral lid lag and droopiness, his vision has improved since. He denies headaches and restless legs. He grinds his teeth at night and uses a mouthguard prn. He has spasms in R>L leg, with intense pain and cramps he has to straighten his leg to relieve the cramps. His memory is okay, he does occasionally forget tasks when he is multitasking or anxious about events. He denies smoking cigarettes, edibles or MJ use. He has Alcohol socially. [facility] Medical History Severe obstructive sleep apnea Sleep apnea Diabetes Surgical History No pertinent past surgical history Family History Father HTN (hypertension) Diabetes mellitus Mother Asthma Mental health disorder Brother No problems noted. Brother Substance use disorder Son No problems noted. Sister Mental health disorder Sister No problems noted. Son No problems noted. 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 Cognitive needs: No Hearing needs: No Vision needs: No Review of Systems Const All systems reviewed & are unremarkable except as noted in HPI and below Physical Exam Vital Signs: Last Vital Signs Pulse 86 12/15/24 14:24 BP 118/74 12/15/24 14:24 Pulse Ox 97 12/15/24 14:24 Oxygen Delivery Method Room Air 12/15/24 14:24 BMI result Body Mass Index 29.4 Const General: cooperative, comfortable and no acute distress Nutritional Appearance: average body habitus and overweight (BMI is 29) Orientation/consciousness: patient oriented x3 HEENT Head: Yes normal to inspection Face and sinus: Yes normal facial exam and Yes face symmetric Teeth and gingiva: other ([place] score of 4) Eyes Pupils: Equal, round and reactive pupils present Neck Neck: Yes full ROM Resp Effort & Inspection: normal respiratory effort and able to speak in complete sentences Neuro General: patient oriented x3 and moves all extremities Cranial nerves: Yes CN's II-XII intact bilaterally, Yes Facial sensation intact/muscles of mastication intact, Yes Equal, round and reactive pupils present, Yes Normal accommodation reflex present, Yes Bilaterally intact EOM present, Yes Nystagmus not present, Yes Normal facial strength present, Yes Midline tongue present, Yes Ability to bilaterally rotate head present and Yes Ability to bilaterally elevate shoulders present Motor exam (neuro): 5/5 motor strength present throughout and Normal motor muscle tone present throughout Deep tendon reflexes (DTR's): Right triceps reflex intensity grade: 2+, Left triceps reflex intensity grade: 2+, Rt Biceps (C5, C6): 2+, Left biceps reflex intensity grade: 2+, Right brachioradialis reflex intensity grade: 2+, Left brachioradialis reflex intensity grade: 2+, Right patellar reflex intensity grade: 2+ and Left patellar reflex intensity grade: 2+ Psych Thought process: Normal thought process present Thought content: Normal thought content present Results Reviewed Results Reviewed: Sleep study March 2024 Severe MIGUEL : AHI 58 with Nocturnal Hypoxemia O2 Pranav to below at 88% for 72 min. May 2024 CPAP Titration study completed : start cpap on [id number] with Airtouch F20 small mask. Assessment & Plan Assessment & Plan (1) Nerve pain: Code(s): M79.2 - Neuralgia and neuritis, unspecified Category: Medical (2) Severe obstructive sleep apnea: Code(s): G47.33 - Obstructive sleep apnea (adult) (pediatric) Category: Medical (3) Daytime hypersomnia: Code(s): G47.10 - Hypersomnia, unspecified Category: Medical (4) Fatigue due to sleep pattern disturbance: Code(s): R53.83 - Other fatigue; G47.9 - Sleep disorder, unspecified Category: Medical Plan Fatigue: CPAP Titration Study current pressures is [id number] and uncomfortably gushing air. Nerve pain Bilaterally feet Pyridoxine B6 250mg PO at night. Muscle spasms R>L feet :Magnesium 400mg PO daily at night. Medications: New pyridoxine (vitamin B6) 250 mg PO DAILY 30 tabs 3RF Nerves MDD 250mg Galina Klein PA-C M79.2 - Neuralgia and neuritis, unspecified Changed From metformin ER 500 mg PO BID 90 days 180 tabs 1RF To metformin ER 500 mg PO DAILY ROBERTO ThomasP- Patient Instructions: Sleep hygiene: maintain strict bedtime regiment, no devices in bed, limit fluids 2 hours prior to bedtime, read in bed, sleep on side versus suppine. Down load the [employer] silvestre and f/u in 3 months for compliance of sleep once titration is completed. Nerve pain / Neuropathy? A1c is controlled, manage blood sugars take metformin 500mg PO as directed. Exercise, Walking, hiking, biking is excellent for blood sugar and modifying HTN, which is the #1 modifiable RF for CV diseases. Bruxism, use a truck guard, and monitor vertigo, timing and onset. Coding Level of Care Code Est Pt Level 4 (03148) Diagnoses Nerve pain M79.2 Severe obstructive sleep apnea G47.33 Daytime hypersomnia G47.10 Fatigue due to sleep pattern disturbance R53.83; G47.9 Time Spent (min) 30 Comment Improving
[2024-12-15 14:24] VITALS: BP 118/74; PULSE 86; O2SAT 97; BMI 29.4
== END 2024-12-15 15:08 | disposition home or self-care (01) ==
PROVIDERS: PCP Nurse Practitioner Family; Visit Provider Physician Assistant Medical
DX: M79.2 Neuralgia and neuritis, unspecified (principal); G47.33 Obstructive sleep apnea (adult) (pediatric); G47.10 Hypersomnia, unspecified; R53.83 Other fatigue; G47.9 Sleep disorder, unspecified
CPT/HCPCS: 99214

== ENCOUNTER → 2024-12-15 14:19 | Outpatient (BNVA) | payer MEDICARE, SELFPAY | PROVIDERS: PCP Nurse Practitioner Family; Visit Provider Nurse Practitioner Family | DX: G47.33 Obstructive sleep apnea (adult) (pediatric) (principal); G47.10 Hypersomnia, unspecified; G47.9 Sleep disorder, unspecified; M79.2 Neuralgia and neuritis, unspecified; R53.83 Other fatigue | CPT/HCPCS: 99212 ==

== ENCOUNTER 2025-01-07 10:16 | Outpatient (AMB) | payer MEDICARE, SELFPAY ==
--- NOTE | 2025-01-07 10:26 | A.OFFPC_ITS ---
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: No Accompanied by: Self / Same As Patient Allergies No Known Allergies Allergy (Verified 01/07/25 10:54) Medication List - Last Reconciled 01/07/25 by JORDEN Thomas acetaminophen (Tylenol Extra Strength) 500 mg PO Q8H alcohol swabs (Alcohol Prep Pads) 1 pad topical TID 30 days atorvastatin 40 mg PO BEDTIME 90 days blood-glucose meter (OneTouch Verio Reflect Meter) As directed celecoxib 200 mg PO DAILY PRN cholecalciferol (vitamin D3) 25 mcg PO DAILY lisinopril 2.5 mg PO DAILY magnesium gluconate 30 mg PO DAILY mzckzqkjziba-uxbimcjh-ealkog 1 tab PO DAILY OneTouch Delica Plus Lancet (lancets) Test blood sugar once a day NS OneTouch Verio test strips (blood sugar diagnostic) Test blood sugar once a day NS pantoprazole 40 mg PO DAILY 90 days pyridoxine (vitamin B6) 250 mg PO DAILY MDD 250mg tizanidine 4 mg PO BEDTIME PRN 90 days Tobacco use date assessed: 01/07/25 Fall risk assessment: No Falls in past year Last assessed Fall Risk: 01/07/25 Dental Screening Dental Screen Date: 01/07/25 Did you have a dental visit in the last 12 months?: Yes Did you have a dental problem in the last 6 months where you did not have access to dental care?: No Was dental information given to patient?: Patient has dentist HPI 4 months f/up HPI Details Chief Complaint Follow-up for diabetes management and medication adjustment History of Present Illness The patient is a 64-year-old male presenting with a follow-up visit for diabetes management. At today's visit, the patient?s A1c level was 6.8%, which reflects satisfactory glycemic control. Historically, the patient has utilized metformin for diabetes, but now wishes to stop due to adverse effects. Although this change represents a potential adjustment in therapeutic regimen, the patient's diabetes remains well-controlled thus far. No symptoms such as polyuria, polydipsia, or neuropathy were reported. The transition to Jardiance was discussed as an alternative therapy. The patient understands the necessity of monitoring for possible adverse effects like infections associated with the new treatment. Social History Health Maintenance - Screening: Today's A1c: 6.8% Review of Systems - Endocrinology: Denies polyuria, polydi psia - Neurological: Denies neuropathy Physical Exam General: Cooperative, healthy appearing, comfortable, no acute distress and well developed Orientation: Patient oriented x3 Limitations: No limitations Head: Normal to inspection Ears: Hearing grossly normal bilaterally Nose: Normal external nose present Face and sinus: Normal facial exam Eyes: Appearance normal, both eyes and all related structures Neck: Normal visual inspection and Yes full ROM Respiratory: Lungs were clear to auscultation bilaterally Cardiovascular: Regular rate and rhythm. Normal S1 and S2 GI: Normal to inspection. Soft to palpation and nontender Skin: No rashes or lesions noted Neuro: Patient oriented x3 Extremities: Feet were intact bilaterally with positive sensation using monofilament. Normal to inspection Results - Labs: Glycated Hemoglobin (A1c) level: 6.8% Plan The patient with Type 2 Diabetes Mellitus will have their medication adjusted by discontinuing metformin due to adverse effects and commencing Jardiance at a low dose. The patient has been instructed to monitor for potential signs of infection, including genital infections, related to the new medication. Further follow-up will be necessary to ascertain the effects and manage any side effects. Discussion Notes I discussed with the patient the diagnosis of Type 2 Diabetes Mellitus and the management plan, which includes switching from metformin to Jardiance due to side effects reported by the patient. I reviewed with him the potential risks associated with Jardiance, notably genital infections, and emphasized the importance of vigilance for symptoms indicating infections. The patient expressed understanding and agreement with the plan and precautions involved. We agreed on subsequent follow-ups to monitor the drug's efficacy and any adverse reactions. Patient Instructions - Discontinue metformin. - Begin taking Jardiance as prescribed. - Watch for signs of infections, particu larly genital infections. - Follow up as instructed for continued diabetes management. [facility] Medical History Severe obstructive sleep apnea Sleep apnea Diabetes Surgical History No pertinent past surgical history Family History Father HTN (hypertension) Diabetes mellitus Mother Asthma Mental health disorder Brother No problems noted. Brother Substance use disorder Son No problems noted. Sister Mental health disorder Sister No problems noted. Son No problems noted. 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 1. Little interest or pleasure in doing things: not at all 2. Feeling down, depressed, or hopeless: not at all 3. Trouble falling or staying asleep, or sleeping too much: several days 4. Feeling tired or having little energy: several days 5. Poor appetite or overeating: not at all 6. Feeling bad about yourself - or that you are a failure or have let yourself or your family down: not at all 7. Trouble concentrating on things, such as reading the newspaper or watching television: several days 8. Moving or speaking so slowly that other people could have noticed. Or the opposite - being so fidgety or restless that you have been moving around a lot more than usual: several days 9. Thoughts that you would be better off or of hurting yourself in some way: not at all Total score: 4 Depression Screening Interpretation: Negative Depression Screening Done: Yes 34634 - PHQ-9 Billing: Yes Source: Developed by Drs. Dago Glover, Melissa Quintero, Sukumar Huang and colleagues, with an educational queta from [employer]. Thrive Questionnaire Date Thrive assessed: 01/07/25 I am a: Patient What is your living situation today?: I have a place to live, but I am worried about losing it in the future Within the past 12 months, did the food you bought not last and you didn't have the money to get more?: Sometimes True Within the past 12 months, did you worry whether your food would run out before you got money to buy more?: Sometimes True Do you have trouble paying for medicines?: I choose not to answer this question Do you have trouble getting transportation to medical appointments?: No Do you have trouble paying your heating and electricity bill?: Yes Do you have trouble taking care of your child, family member or friend?: No Do you have trouble with day-to-day activities such as bathing, preparing meals, shopping, managing finances, etc.?: No Are you currently unemployed and looking for a job?: No Are you interested in more education?: No Please select the resources that you would like help with: Utilities Currently or been in a relationship where the following occur: I choose not to answer THRIVE Score: 4 AUDIT C Alcohol Use Questionnaire (AUDIT-C) 1. How often do you have a drink containing alcohol?: Monthly or less 2. How many drinks containing alcohol do you have on a typical day when you are drinking?: 1 or 2 3. How often do you have six or more drinks on one occasion?: Less than monthly Total Score: 2 Score Reviewed/Action Taken: Yes MADAI-7 AMB Questionnaire MADAI-7 Date MADAI - 7 assessed: 01/07/25 Feeling nervous, anxious, or on edge: 1 = Several days Not being able to stop or control worryin = Nearly every day Worrying too much about different things: 2 = More than half the days Trouble relaxin = More than half the days Being so restless that it is hard to sit still: 2 = More than half the days Becoming easily annoyed or irritable: 1 = Several days Feeling afraid as if something awful might happen: 1 = Several days Total MADAI-7 score (0-4 normal; 5-9 mild; 10-14 moderate; 15-21 severe): 12 Source: Developed by Drs. Dago Glover, Melissa Quintero, Sukumar Huang and colleagues, with an educational queta from [employer] MADAI-7 Assessment Billing MADAI-7 Assessment Tool: MADAI-7 Assessment 11904 Physical exam (Primary Care) Vital Signs: Last Vital Signs Pulse 67 01/07/25 10:27 BP 130/82 01/07/25 10:27 Pulse Ox 97 01/07/25 10:27 Oxygen Delivery Method Room Air 01/07/25 10:27 BMI result Body Mass Index 29.1 Tobacco/Smoking Status: Tobacco use Status Tobacco use date assessed 01/07/25 01/07/25 10:28 Patient Tobacco Use Status Never used Tobacco 01/07/25 10:28 e-Cigarette/Vaping Use Never Used 01/07/25 10:28 PHQ-9: PHQ-9 Score PHQ-9: Total score 4 01/07/25 10:53 Depression Screening Interpretation: Negative Thrive Assessment: Date of Thrive Assessment Date Thrive assessed 01/07/25 01/07/25 10:28 Currently or been in a relationship where the following occur: I choose not to answer Coding Level of Care Code Est Pt Level 3 (62888) Diagnoses Diabetes E11.9 Screening PSA (prostate specific antigen) Z12.5 Screening for colon cancer Z12.11 Additional Codes MADAI-7 Assessment Billing - MADAI-7 Assessment Tool: MADAI-7 Assessment 01662 ([id number]) PHQ-9 - 52925 - PHQ-9 Billing: Yes ([id number]) Assessment & Plan Assessment & Plan (1) Diabetes: Code(s): E11.9 - Type 2 diabetes mellitus without complications Category: Medical (2) Screening PSA (prostate specific antigen): Code(s): Z12.5 - Encounter for screening for malignant neoplasm of prostate Category: Medical (3) Screening for colon cancer: Code(s): Z12.11 - Encounter for screening for malignant neoplasm of colon Category: Medical Plan . Orders: Orders Comprehensive [place] Chuck. Panel Fast Today E11.9 - Type 2 diabetes mellitus without complications Prostate Specific Antigen Scr Today Z12.5 - Encounter for screening for malignant neoplasm of prostate AMB Hemoglobin A1c Today Z13.9 - Encounter for screening, unspecified Complete Blood Count Auto Diff Today E11.9 - Type 2 diabetes mellitus without complications TSH reflex Free T4 Today E11.9 - Type 2 diabetes mellitus without complications UA CC w/rflx Micro + Cult Today E11.9 - Type 2 diabetes mellitus without complications Lipid Panel Today E11.9 - Type 2 diabetes mellitus without complications Microalbumin, Random (w Creat) Today E11.9 - Type 2 diabetes mellitus without complications Referrals Gastroenterology Referral Z12.11 - Encounter for screening for malignant neoplasm of colon Medications: New empagliflozin (Jardiance) 10 mg PO DAILY 30 tabs 2RF 30 days
[2025-01-07 10:27] VITALS: BP 130/82; PULSE 67; O2SAT 97; BMI 29.1
== END 2025-01-07 11:14 | disposition home or self-care (01) ==
PROVIDERS: PCP Nurse Practitioner Family; Visit Provider Nurse Practitioner Family
DX: E11.9 Type 2 diabetes mellitus without complications (principal); Z12.5 Encounter for screening for malignant neoplasm of prostate; Z12.11 Encounter for screening for malignant neoplasm of colon

== ENCOUNTER 2025-01-07 10:16 | Outpatient (REF) | payer MEDICARE, SELFPAY ==
[2025-01-07 13:20] LABS: Appearance Urine Clear; Color Urine Yellow; Glucose Urine UA Negative (Negative); Leukocyte Esterase Urine Negative (Negative); Nitrite Urine Negative (Negative); PH 8.5 (5.0-9.0); Urine Blood Negative (Negative); Urine Ketones Negative (Negative); Urine Protein Trace mg/dL (Neg-Trace)
[2025-01-07 13:38] LABS: MANUAL DIFF FLAG NO
[2025-01-07 13:46] LABS: Basophils Percent Auto 0.5 % (0-2); Eosinophils Absolute Auto 0.1 X10*3/uL (0.0-0.4); Hematocrit 51.1 % (42.0-52.0); Hemoglobin 16.8 g/dl (14.0-18.0); Imm Gran Abs Auto 0.02 X10*3/uL (0.00-0.03); Imm Gran Pct Auto 0.3 % (0.0-0.4); Lymphocytes Absolute Auto 1.3 X10*3/uL (1.2-4.9); Mean Corpuscular HGB Conc 32.9 g/dl (31.0-36.0); Mean Corpuscular Hemoglobin 29.1 pg (27.0-33.0); Mean Corpuscular Volume 88.4 fL (80.0-98.0); Monocytes Absolute Auto 0.7 X10*3/uL (0.1-1.2); Monocytes Percent Auto 11.1 % (2-11); Neutrophils Absolute Auto 4.2 x10*3/uL (2.0-8.3); Neutrophils Percent Auto 66.1 % (45-73); Platelet Count 188 X10*3/uL (160-400); Red Blood Count 5.78 X10*6/uL (4.60-5.80); Red Cell Distribution Width 13.7 % (11.0-16.0); White Blood Count 6.3 X10*3/uL (4.8-10.8)
[2025-01-07 14:14] LABS: Alanine Aminotransferase 29 U/L (0-40); Albumin Level 4.5 g/dL (3.5-5.0); Alkaline Phosphatase 80 U/L (39-117); Anion Gap 9 (12-20); Aspartate Amino Transferase 26 U/L (5-37); Bilirubin Total 0.5 mg/dL (0.0-1.0); Blood Urea Nitrogen 12 mg/dL (9-16); Calcium 9.4 mg/dL (8.4-10.2); Carbon Dioxide 29 mmol/L (22-29); Chloride 104 mmol/L (96-108); Cholesterol 177 mg/dL (<200); Estimated Glomerular Filt Rate > 60; Glucose Fasting 125 mg/dL (60-99); HDL Cholesterol 43 mg/dL (>40); LDL Cholesterol Calculated 107 mg/dL (<100); Potassium 4.4 mmol/L (3.3-5.1); Sodium 138 mmol/L (135-145); Total Protein 7.8 g/dL (6.5-8.0); Triglycerides 135 mg/dL (<150)
[2025-01-07 14:15] LABS: TSH reflex Free T4 1.97 uIU/mL (0.32-4.0)
[2025-01-07 14:24] LABS: Creatinine Urine 128.56 mg/dL; Microalbum/Creatinine Ratio Ur 7.7 ug/mg cr (<30)
== END 2025-01-07 10:17 | disposition home or self-care (01) ==
LOC: HO.HMGCLDS 10:16
PROVIDERS: PCP Nurse Practitioner Family; Visit Provider Nurse Practitioner Family
DX: E11.9 Type 2 diabetes mellitus without complications (principal); Z12.5 Encounter for screening for malignant neoplasm of prostate
CPT/HCPCS: 36415; 80053; 80061; 81003; 82043; 82570; 83036; 84153; 84443; 85025; 96127; 99212

== ENCOUNTER 2025-05-28 09:35 | Outpatient (AMB) | payer OTHER, SELFPAY ==
[2025-05-28 09:50] VITALS: BP 133/81; PULSE 61; BMI 28.0
--- NOTE | 2025-05-28 09:50 | A.OFFVIS_ITS ---
Vital Signs 05/28/25 09:50 Height 5 ft 7 in Weight 179 lb 0.246 oz BMI 28.0 BP 133/81 Blood Pressure Location Rt brachial Position Sitting Pulse 61 Intake Visit Reasons: Colonoscopy Screening Intake Note: New patient in office today for colonoscopy screening. CC: Patient denies having any GI symptoms or concerns today. [place] [facility] [place] 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 He is referred by Toribio Schwartz. PMX MIGUEL Thrombocytopenia Hearing loss Diabetes History of multiple rib fractures Low back pain with radiculopathy * SURGICAL HISTORY Colonoscopy-20 14- study Appendectomy Radial fx repair * ALLERGIES: NKDA * [employer] LABS: Laboratory Tests 01/07/25 11:19 WBC 6.3 Hgb 16.8 Hct 51.1 Plt Count 188 Estimated GFR > 60 Total Bilirubin 0.5 AST 26 ALT 29 Alkaline Phosphatase 80 TSH 1.97 TODAY'S VISIT He had a prior colonoscopy in 2013 that was negative. His stool floats at times, no other bowel or upper GI problems. He has MIGUEL and his apneic periods during last scope concerned the staff but no other problem with anesthesia or sedation. He denies cardiac problems. No ID problems. There is no known FHX of crc or polyps. [facility] Medical History Severe obstructive sleep apnea Sleep apnea Diabetes Surgical History History of appendectomy H/O colonoscopy No pertinent past surgical history Family History Father HTN (hypertension) Diabetes mellitus Mother Asthma Mental health disorder Brother No problems noted. Brother Substance use disorder Son No problems noted. Sister Mental health disorder Sister No problems noted. Son No problems noted. 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 Cognitive needs: No Hearing needs: No Vision needs: No Review of Systems Const Denies fatigue, Denies fever(s), Denies night sweats, Denies poor appetite and Denies weight loss ENT Reports Normal hearing present, Denies dental pain, Denies dysphagia, Denies hearing loss, Denies mouth pain, Denies odynophagia, Denies throat swelling, Denies tongue swelling and Reports other (Dentition adequate) Card Reports no additional complaints Resp Reports no additional complaints GI Details: Denies abdominal pain, Denies melena, Denies bloating, Denies hematochezia, Denies constipation, Denies GI cramping, Denies dysphagia, Denies excessive flatus, Denies early satiety, Denies heartburn, Denies diarrhea, Denies nausea, Denies odynophagia, Denies vomiting and Denies hematemesis Skin/Breast Denies pruritus, Denies lesions, Denies rash and Denies jaundice Neuro Reports Normal hearing present and Denies Abnormal speech present Endo Denies fatigue Aller/Immun Denies throat swelling and Denies tongue swelling Physical Exam Vital Signs: Last Vital Signs Pulse 61 05/28/25 09:50 BP 133/81 05/28/25 09:50 BMI result Body Mass Index 28.0 Const General: cooperative, no acute distress, well developed and well groomed Nutritional Appearance: well nourished Orientation/consciousness: oriented to person, oriented to place and oriented to time Limitations: No language barrier HEENT Head: Yes normocephalic and Yes atraumatic Eyes General: appearance normal, both eyes and all related structures Pupils: Equal, round and reactive pupils present Neck Neck: Yes normal visual inspection and Yes no lymphadenopathy Thyroid: Thyroid normal Resp Effort & Inspection: normal respiratory effort and able to speak in complete sentences Auscultation: clear to auscultation bilaterally Cardio Rate: regular rate Rhythm: regular rhythm Heart sounds: Normal, physiologic split S2 sound present Peripheral pulses: radial pulses present and posterior tibial pulses present GI Inspection: No distended, No Abdominal panniculus present and Yes obesity Palpation (GI): Soft to palpation, nontender, no guarding, not rigid and No hepatosplenomegaly present Percussion: Yes normal to percussion Auscultation: normal bowel sounds Rectal Exam - Male: Yes deferred Skin General skin exam: no rashes or lesions noted, turgor normal, skin not dry, no jaundice, No spider nevi and no striae Rashes: no rashes Nails: normal Neuro General: oriented to person, oriented to place and oriented to time Cranial nerves: Yes Equal, round and reactive pupils present and Yes Normal hearing present Speech: No Abnormal speech present Extrem General: Yes normal to inspection, No clubbing, No cyanosis and No edema Psych Appearance: grossly normal and well kempt Mental Status: mental status grossly normal Speech and movement: Normal speech and movement present Affect: normal affect Attitude: cooperative Thought process: Normal thought process present and not confabulating Thought content: Normal thought content present Insight: Good insight present (Psych) Judgement: Good judgement present (Psych) Assessment & Plan Assessment & Plan (1) Pre-op evaluation: Code(s): Z01.818 - Encounter for other preprocedural examination Category: Medical Plan He had a prior colonoscopy in 2013 that was negative. His stool floats at times, no other bowel or upper GI problems. He has MIGUEL and his apneic periods during last scope concerned the staff but no other problem with anesthesia or sedation. He denies cardiac problems. No ID problems. There is no known FHX of crc or polyps. Orders: Orders Colonoscopy - GI Use Only Today Z01.818 - Encounter for other preprocedural examination Medications: New bisacodyl (Dulcolax (bisacodyl)) 10 mg (2 x 5 mg) PO BEDTIME 4 tabs 0RF 2 days peg 3350-electrolytes 236-22.74-6.74 -5.86 gram (Golytely) until fecal effluent is clear; do not exceed a total volume of 2,000 mL 240 mL PO Q10M 4,000 mL 0RF 1 day Z12.11 - Encounter for screening for malignant neoplasm of colon Coding Level of Care Code New Pt Level 3 (23564) Diagnoses Pre-op evaluation Z01.818
== END 2025-05-28 10:30 | disposition home or self-care (01) ==
LOC: HO.HGI 09:36
PROVIDERS: PCP Nurse Practitioner Family; Visit Provider Nurse Practitioner
DX: Z01.818 Encounter for other preprocedural examination (principal); Z12.11 Encounter for screening for malignant neoplasm of colon
CPT/HCPCS: 99203

== ENCOUNTER 2025-06-17 09:59 | Outpatient (AMB) | payer OTHER, SELFPAY ==
--- NOTE | 2025-06-17 10:01 | MHC.OFFWIV ---
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 Allergies No Known Allergies Allergy (Verified 06/17/25 10:06) Medication List - Last Reconciled 06/17/25 by Diego Zayas MD acetaminophen (Tylenol Extra Strength) 500 mg PO Q8H alcohol swabs (Alcohol Prep Pads) 1 pad topical TID 30 days atorvastatin 40 mg PO BEDTIME 90 days bisacodyl (Dulcolax (bisacodyl)) 10 mg (2 x 5 mg) PO BEDTIME 2 days blood-glucose meter ([employer] Verio Reflect Meter) As directed celecoxib 200 mg PO DAILY PRN cholecalciferol (vitamin D3) 25 mcg PO DAILY lisinopril 2.5 mg PO DAILY magnesium gluconate 30 mg PO DAILY metformin ER 500 mg PO BID rhviovcragsl-kfrfxzna-dkcuam 1 tab PO DAILY OneTouch Delica Plus Lancet (lancets) Test blood sugar once a day NS OneTouch Verio test strips (blood sugar diagnostic) Test blood sugar once a day NS pantoprazole 40 mg PO DAILY 90 days peg 3350-electrolytes 236-22.74-6.74 -5.86 gram (Golytely) 240 mL PO Q10M 1 day pyridoxine (vitamin B6) 250 mg PO DAILY MDD 250mg tizanidine 4 mg PO BEDTIME PRN 90 days Do you need a note to return to daycare/school/sports/work: No HPI EP Rt foot pain HPI Details Chief Complaint The patient reports right foot pain with a duration of over three weeks and mentions limping, along with a rash. History of Present Illness The patient is a 65-year-old male presenting with right foot pain and a rash. Right foot pain: - The patient reports pain localized to the right foot, specifically in the plantar area. - The pain has been present for over three weeks, and is exacerbated by walking, causing the patient to limp. - The patient has been managing the pain with [id number]-awn-qtmmlyr Tylenol and has also been prescribed Celebrex for arthritis-related pain. Rash: - The patient has noticed a rash with dots appearing on the right foot, described as new and having developed over the past three weeks. - The rash is described as looking like healed dots, and the patient has not recognized it before. - The presence of the rash coincides with the timeline of the foot pain. Medical History: - Arthritis Medications: - Tylenol for right foot pain - Celebrex for arthritis pain Social History: - The patient is currently not employed and spends time at home performing household activities. Problem List - Right foot pain - Rash Patient Instructions - Take the prescribed medication for five days as instructed. Prednisone 20 mg once a day for 5 days for possible post herpetic neuralgia due to presence of healed rash - Reach out to healthcare provider if symptoms do not improve. 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 Brother Substance use disorder Son No problems noted. Sister Mental health disorder Sister No problems noted. Son No problems noted. 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 History of Present Illness The patient is a 65-year-old male presenting with right foot pain and a rash. Right foot pain: - The patient reports pain localized to the right foot, specifically in the plantar area. - The pain has been present for over three weeks, and is exacerbated by walking, causing the patient to limp. - The patient has been managing the pain with fhqj-hvq-tygnkdp Tylenol and has also been prescribed Celebrex for arthritis-related pain. Rash: - The patient has noticed a rash with dots appearing on the right foot, described as new and having developed over the past three weeks. - The rash is described as looking like healed dots, and the patient has not recognized it before. - The presence of the rash coincides with the timeline of the foot pain. Medical History: - Arthritis Medications: - Tylenol for right foot pain - Celebrex for arthritis pain Social History: - The patient is currently not employed and spends time at home performing household activities. Problem List - Right foot pain - Rash Patient Instructions - Take the prescribed medication for five days as instructed. Prednisone 20 mg once a day for 5 days for possible post herpetic neuralgia due to presence of healed rash - Reach out to healthcare provider if symptoms do not improve. Medications: New prednisone 20 mg PO DAILY 5 tabs 0RF 5 days Coding Level of Care Code Est Pt Level 3 (96851) Diagnoses Foot pain, right M79.671
[2025-06-17 10:02] VITALS: BP 126/70; PULSE 72; TEMP 36.5; O2SAT 98; BMI 27.9
== END 2025-06-17 10:19 | disposition home or self-care (01) ==
PROVIDERS: PCP Nurse Practitioner Family; Visit Provider Internal Medicine
DX: M79.671 Pain in right foot (principal)

== ENCOUNTER 2025-08-03 13:34 | Outpatient (AMB) | payer MEDICARE, SELFPAY ==
[2025-08-03 13:40] VITALS: BP 138/78; PULSE 72; RESP 16; TEMP 37.1; O2SAT 98; BMI 28.0
--- NOTE | 2025-08-03 13:40 | A.OFFPC_ITS ---
Vital Signs 08/03/25 13:40 Height 5 ft 7 in Weight 179 lb BMI 28.0 BP 138/78 Blood Pressure Location Lt brachial Position Sitting Respiration 16 Pulse 72 Pulse Source Pulse Oximeter Temp 98.7 F Temp Source Oral Pulse Oximetry (%) 98 Oxygen Delivery Method Room Air Intake Visit Reasons: Annual PE a1c due Patient Services Rep Required: No Accompanied by: Self / Same As Patient Allergies No Known Allergies Allergy (Verified 06/17/25 10:06) Medication List - Last Reconciled 08/03/25 by NOAM Thomas-LINDA acetaminophen (Tylenol Extra Strength) 500 mg PO Q8H alcohol swabs (Alcohol Prep Pads) 1 pad topical TID 30 days atorvastatin 40 mg PO BEDTIME 90 days bisacodyl (Dulcolax (bisacodyl)) 10 mg (2 x 5 mg) PO BEDTIME 2 days blood-glucose meter (TweetPhotoTouch Verio Reflect Meter) As directed celecoxib 200 mg PO DAILY PRN cholecalciferol (vitamin D3) 25 mcg PO DAILY lisinopril 2.5 mg PO DAILY magnesium gluconate 30 mg PO DAILY metformin ER 500 mg PO BID scaswizgpemv-rwpxmecf-snihmh 1 tab PO DAILY OneTouch Delica Plus Lancet (lancets) Test blood sugar once a day NS OneTouch Verio test strips (blood sugar diagnostic) Test blood sugar once a day NS pantoprazole 40 mg PO DAILY 90 days peg 3350-electrolytes 236-22.74-6.74 -5.86 gram (Golytely) 240 mL PO Q10M 1 day pyridoxine (vitamin B6) 250 mg PO DAILY MDD 250mg tizanidine 4 mg PO BEDTIME PRN 90 days Tobacco use date assessed: 08/03/25 Fall risk assessment: No Falls in past year Last assessed Fall Risk: 08/03/25 Dental Screening Dental Screen Date: 08/03/25 Did you have a dental visit in the last 12 months?: Yes Did you have a dental problem in the last 6 months where you did not have access to dental care?: No Was dental information given to patient?: Patient has dentist HPI Annual PE a1c due HPI Details History of Present Illness The patient is a 65-year-old male presenting with a physical examination and diabetes management. His hemoglobin A1c has increased to 8.3% from a previous 6.8%, indicating poor glycemic control. The patient admits to a poor diet and has discontinued metformin, which he plans to resume along with dietary improvements. The patient denies any neuropathy, and his feet are intact bilaterally with positive sensation confirmed by monofilament testing. He is due for a colon cancer screening and has already completed the preoperative appointment. The patient denies experiencing any fevers, chills, chest pain, dyspnea, abdominal pain, or gastrointestinal bleeding. He also denies any suicidal or homicidal ideation. Health Maintenance - Colon cancer screening: Preoperative a ppointment completed, awaiting procedure - Eye examination: Up to date, next due this fall -PSA is up to date Social History - Diet: Reports poor dietary habits cont ributing to elevated A1c - Stress: Reports experiencing significa nt stress Review of Systems - Neurological: Denies neuropathy - Cardiovascular: Denies chest pain - Respiratory: Denies dyspnea - Gastrointestinal: Denies abdominal coral n, blood in stool, constipation, diarrhea - Psychiatric: Denies suicidal or homici juan francisco ideation Physical Exam General: Cooperative, healthy appearing, comfortable, no acute distress and well developed Orientation: Patient oriented x3 Limitations: No limitations Head: Normal to inspection Ears: Hearing grossly normal bilaterally Nose: Normal external nose present Face and sinus: Normal facial exam Eyes: Appearance normal, both eyes and all related structures Neck: Normal visual inspection and Yes full ROM Respiratory: Normal respiratory effort and able to speak in complete sentences. Clear to auscultation bilaterally Cardiovascular: Regular rate and rhythm. Normal S1 and S2 GI: Normal to inspection. Soft to palpation and nontender : Testicles without masses/lesions and no hernias appreciated Skin: No rashes or lesions noted Neuro: Patient oriented x3 Extremities: Feet were intact bilaterally with positive sensation due to monofilament. Normal to inspection Results - Labs: Hemoglobin A1c 8.3% Plan 1. Type 2 Diabetes Mellitus The patient's hemoglobin A1c has increased to 8.3%, indicating poor glycemic control. He plans to resume metformin and improve his diet to manage his diabetes better. 2. Preventative Care: Colon Cancer Scree karol The patient is due for a colon cancer screening and has completed the preoperative appointment. Arrangements will be made to schedule the procedure with the gastroenterology team. 3. Encounter for general adult medical e xamination with abnormal findings Z00.01 Discussion Notes I discussed with the patient the importance of resuming metformin and improving dietary habits to manage his diabetes effectively. We also reviewed the need for a colon cancer screening and the steps to complete the procedure with the gastroenterology team. Patient Instructions - Resume taking metformin as prescribed. - Improve dietary habits to help control blood sugar levels. - Follow up with the gastroenterology te am for colon cancer screening. [facility] Medical History Severe obstructive sleep apnea Sleep apnea Diabetes Surgical History History of appendectomy H/O colonoscopy No pertinent past surgical history Family History Father HTN (hypertension) Diabetes mellitus Mother Asthma Mental health disorder Brother No problems noted. Brother Substance use disorder Son No problems noted. Sister Mental health disorder Sister No problems noted. Son No problems noted. 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 1. Little interest or pleasure in doing things: not at all 2. Feeling down, depressed, or hopeless: several days 3. Trouble falling or staying asleep, or sleeping too much: not at all 4. Feeling tired or having little energy: not at all 5. Poor appetite or overeating: not at all 6. Feeling bad about yourself - or that you are a failure or have let yourself or your family down: not at all 7. Trouble concentrating on things, such as reading the newspaper or watching television: not at all 8. Moving or speaking so slowly that other people could have noticed. Or the opposite - being so fidgety or restless that you have been moving around a lot more than usual: not at all 9. Thoughts that you would be better off or of hurting yourself in some way: not at all Total score: 1 Depression Screening Interpretation: Negative Depression Screening Done: Yes 50871 - PHQ-9 Billing: Yes Source: Developed by Drs. Dago Glover, Melissa Quintero, Sukumar Huang and colleagues, with an educational queta from [employer]. Thrive Questionnaire Date Thrive assessed: 01/07/25 I am a: Patient What is your living situation today?: I have a place to live, but I am worried about losing it in the future Within the past 12 months, did the food you bought not last and you didn't have the money to get more?: Sometimes True Within the past 12 months, did you worry whether your food would run out before you got money to buy more?: Sometimes True Do you have trouble paying for medicines?: I choose not to answer this question Do you have trouble getting transportation to medical appointments?: No Do you have trouble paying your heating and electricity bill?: Yes Do you have trouble taking care of your child, family member or friend?: No Do you have trouble with day-to-day activities such as bathing, preparing meals, shopping, managing finances, etc.?: No Are you currently unemployed and looking for a job?: No Are you interested in more education?: No Please select the resources that you would like help with: Utilities Currently or been in a relationship where the following occur: I choose not to answer THRIVE Score: 4 MADAI-7 AMB Questionnaire MADAI-7 Date MADAI - 7 assessed: 08/03/25 Feeling nervous, anxious, or on edge: 0 = Not at all Not being able to stop or control worryin = Not at all Worrying too much about different things: 0 = Not at all Trouble relaxin = Not at all Being so restless that it is hard to sit still: 0 = Not at all Becoming easily annoyed or irritable: 0 = Not at all Feeling afraid as if something awful might happen: 0 = Not at all Total MADAI-7 score (0-4 normal; 5-9 mild; 10-14 moderate; 15-21 severe): 0 Source: Developed by Melissa Andrade Kurt Kroenke and colleagues, with an educational queta from [employer]. MADAI-7 Assessment Billing MADAI-7 Assessment Tool: MADAI-7 Assessment 82735 Physical exam (Primary Care) Vital Signs: Last Vital Signs Temp 98.7 F 08/03/25 13:40 Pulse 72 08/03/25 13:40 Resp 16 08/03/25 13:40 BP 138/78 08/03/25 13:40 Pulse Ox 98 08/03/25 13:40 Oxygen Delivery Method Room Air 08/03/25 13:40 BMI result Body Mass Index 28.0 Tobacco/Smoking Status: Tobacco use Status Tobacco use date assessed 08/03/25 08/03/25 13:50 Patient Tobacco Use Status Never used Tobacco 08/03/25 13:50 e-Cigarette/Vaping Use Never Used 08/03/25 13:50 PHQ-9: PHQ-9 Score PHQ-9: Total score 1 08/03/25 13:50 Depression Screening Interpretation: Negative Thrive Assessment: Date of Thrive Assessment Date Thrive assessed 01/07/25 08/03/25 13:50 Currently or been in a relationship where the following occur: I choose not to answer Results AMB Hemoglobin A1c AMB Hemoglobin A1c 8.3 % Last Edit by Mathew Reilly CMA on 08/03/25 13: 59 Results Reviewed Results Reviewed: Laboratory Last Values Hgb A1c (Clinic) 8.3 % (4.0-6.0) H 08/03/25 13:57 Coding Level of Care Code Est Pt Level 3 (23646) Est Pt Prev Care >65y(72823) Diagnoses Diabetes E11.9 Encounter for routine adult physical exam with abnormal findings Z00.01 Additional Codes MADAI-7 Assessment Billing - MADAI-7 Assessment Tool: MADAI-7 Assessment 75303 ([id number]) PHQ-9 - 64520 - PHQ-9 Billing: Yes ([id number]) Assessment & Plan Assessment & Plan (1) Diabetes: Code(s): E11.9 - Type 2 diabetes mellitus without complications Category: Medical (2) Encounter for routine adult physical exam with abnormal findings: Code(s): Z00.01 - Encounter for general adult medical examination with abnormal findings Category: Medical Plan . Orders: Orders Comprehensive [place]. Panel Fast Today E11.9 - Type 2 diabetes mellitus without complications, Z00.01 - Encounter for general adult medical examination with abnormal findings TSH reflex Free T4 Today E11.9 - Type 2 diabetes mellitus without complications, Z00.01 - Encounter for general adult medical examination with abnormal findings AMB Hemoglobin A1c Today Z13.9 - Encounter for screening, unspecified Complete Blood Count Auto Diff Today E11.9 - Type 2 diabetes mellitus without complications, Z00.01 - Encounter for general adult medical examination with abnormal findings UA CC w/rflx Micro + Cult Today E11.9 - Type 2 diabetes mellitus without complications, Z00. - Encounter for general adult medical examination with abnormal findings Lipid Panel Today E11.9 - Type 2 diabetes mellitus without complications, Z00.01 - Encounter for general adult medical examination with abnormal findings Microalbumin, Random (w Creat) Today E11.9 - Type 2 diabetes mellitus without complications, Z00.01 - Encounter for general adult medical examination with abnormal findings Vitamin D 25-OH Total Today Z00.01 - Encounter for general adult medical examination with abnormal findings Medications: Discontinued prednisone Discontinued Reason: Doctor's Order 20 mg PO DAILY 5 days 5 tabs 0RF
--- OUTSIDE RECORDS SUMMARY | 2025-08-03 15:05 | XMS_ITS | Clinical Summary ---
Author Organization [facility] [address] [place] [address] [place] [phone] Phone Care Team Providers Care Motorcycle Service Technician Name Role Phone Physician, Pcp Unknown Primary Care Provider Florencia vailable Encounters Date Type Department Care Team Description 07/13/2025 1:49 PM EDT - 07/13/2025 11:59 PM EDT Hospital Encounter CT Scan - [address] [phone] Pain in right foot Discharge Disposition: Home or Self Care from Last 3 Months Social History Tobacco Use Types Packs/Day Years Used Date Smoking Tobacco: Never Assessed Sex and Gender Information Value Date Recorded Sex Assigned at Not on file Legal Sex Male 8:33 AM EDT Gender Identity Not on file Sexual Orientation Not on file Plan of Treatment Health Maintenance Due Date Last Done Comments Zoster Vaccines (2 of 2) 07/29/2024 06/03/2024 Depression Screening 11/05/2024 COVID-19 Vaccine ( - 2024-2 6 season) 2025 11/02/2021, 02/24/2021, 02/01/2021 Influenza Vaccine (#1) 2025 10/24/2022 Abdominal Aortic Aneurysm (AAA) Screen 07/13/2025 Cholesterol Screening (Lipid Panel) 07/13/2025 Colorectal Cancer Screening: Colonoscopy 07/13/2025 Falls Risk Assessment 07/13/2025 Hepatitis C Screening 07/13/2025 Medicare Annual Wellness Visit 07/13/2025 Social Influencers of Health Screening 07/13/2025 DTaP,Tdap,and Td Vaccines (2 - Td or Tdap) 11/18/2025 11/18/2015 Hepatitis A Vaccines Aged Out 01/28/2008 No long er eligible based on patient's age to complete this topic Pneumococcal Vaccine: 50+ Years Completed 11/22/2023, 10/24/2022 RSV Immunization Adult Patients Completed 04/29/2025 HIB Vaccines Aged Out No longer eligi ble based on patient's age to complete this topic HPV Vaccines Aged Out No longer eligi ble based on patient's age to complete this topic Hepatitis B Vaccines Aged Out No long er eligible based on patient's age to complete this topic IPV Vaccines Aged Out No longer eligi ble based on patient's age to complete this topic MMR Vaccines Aged Out No longer eligi ble based on patient's age to complete this topic Meningococcal ACWY Vaccine Aged Out N o longer eligible based on patient's age to complete this topic Meningococcal B Vaccine Aged Out No l onger eligible based on patient's age to complete this topic RSV Immunization Patients Under 20 months Aged Out No longer eligible b ased on patient's age to complete this topic Varicella Vaccines Aged Out No longer eligible based on patient's age to complete this topic Procedures Procedure Name Priority Date/Time Associated Diagnosis Comments CT LOWER EXTREMITY WO CONTRAST RIGHT Routine 07/13/2025 1:59 PM EDT Pain in right foot from Last 3 Months Results * CT Lower Extremity wo Contrast Right (07/13/2025 1:59 PM EDT) Anatomical Region Laterality Modality Lower Extremities Right Computed Tomog megan 07/14/2025 12:2 3 PM EDT Impressions 07/14/2025 12:57 PM EDT Mild degenerative changes. Calcaneal spurring. Findings of calcific tendinopathy involving the Achilles tendon. Tiny calcifications associated with the plantar fascia from plantar fasciitis. POS - [id number] -------- FINAL REPORT -------- Dictated By: Na Smith Dictated Date: 07/14/2025 12:23 ET Assigned Physician: Na Smith Reviewed and Electronically Signed By: Na Smith Signed Date: 07/14/2025 12:57 ET Workstation ID: [id number] Transcribed By: Self Edit Transcribed Date: 07/14/2025 12:37 ET Narrative 07/14/2025 12:57 PM EDT EXAM: CT lower extremity right HISTORY: Pain in right foot. COMPARISON: None CORRELATION: None TECHNIQUE: Axial CT through the right foot without IV contrast. Sagittal and coronal reformatted images obtained. Automated exposure control utilized. TOTAL CTDIvol: 10.35 mGy FINDINGS: No acute fracture detected. No malalignment. Very mild degenerative changes at the first MTP joint with joint space narrowing and spurring. Spurring at the medial and lateral ankle mortise. Talar dome has a smooth contour. No evidence of a bony coalition. No destructive bone lesion. Small posterior calcaneal spur with calcifications in the region of the distal Achilles tendon from calcific tendinopathy. Small plantar calcaneal spur with tiny calcifications associated with the plantar fascia from plantar fasciitis. Procedure Note Na Smith MD - 07/14/2025 EXAM: CT lower extremity right HISTORY: Pain in right foot. COMPARISON: None CORRELATION: None TECHNIQUE: Axial CT through the right foot without IV contrast. [place] coronal reformatted images obtained. Automated exposure controlutilized. TOTAL CTDIvol: 10.35 mGy FINDINGS: No acute fracture detected. No malalignment. Very mild degenerativechanges at the first MTP joint with joint space narrowing and spurring.Spurring at the medial and lateral ankle mortise. Talar dome has a smoothcontour. No evidence of a bony coalition. No destructive bone lesion.Small posterior calcaneal spur with calcifications in the region of thedistal Achilles tendon from calcific tendinopathy. Small plantar calcanealspur with tiny calcifications associated with the plantar fascia fromplantar fasciitis. IMPRESSION: Mild degenerative changes. Calcaneal spurring. Findings of calcifictendinopathy involving the Achilles tendon. Tiny calcifications associatedwith the plantar fascia from plantar fasciitis. POS - [id number] -------- FINAL REPORT -------- Dictated By: Na Smith Dictated Date: 07/14/2025 12:23 ET Assigned Physician: Na Smith Reviewed and Electronically Signed By: Na Smith Signed Date: 07/14/2025 12:57 ET Workstation ID: [id number] Transcribed By: Self Edit Transcribed Date: 07/14/2025 12:[address] PROCEDURES Final Resu lt from Last 3 Months Insurance [employer] MEDICARE Care Teams Motorcycle Service Technician Relationship Specialty Start Date End Date Physician, Pcp Unknown PCP - General 07/13/25
== END 2025-08-03 15:57 | disposition home or self-care (01) ==
LOC: HO.HMCC 13:35
PROVIDERS: PCP Nurse Practitioner Family; Visit Provider Nurse Practitioner Family
DX: Z00.01 Encounter for general adult medical examination with abnormal findings (principal); E11.9 Type 2 diabetes mellitus without complications

== ENCOUNTER → 2025-08-03 13:34 | Outpatient (BNVA) | payer MEDICARE, SELFPAY | PROVIDERS: PCP Nurse Practitioner Family; Visit Provider Nurse Practitioner Family | DX: Z00.01 Encounter for general adult medical examination with abnormal findings (principal); E11.9 Type 2 diabetes mellitus without complications; E11.40 Type 2 diabetes mellitus with diabetic neuropathy, unspecified | CPT/HCPCS: 96127; 99212; 99397 ==

== ENCOUNTER 2025-08-27 07:58 | Day surgery (SDC) | payer MEDICARE, SELFPAY ==
--- OUTSIDE RECORDS SUMMARY | 2025-08-04 09:47 | XMS_ITS | Clinical Summary ---
Author Organization [facility] [address] [place] [address] [place] [phone] Phone Care Team Providers Care Technical Sales Advisor Name Role Phone Physician, Pcp Unknown Primary Care Provider Florencia vailable Encounters Date Type Department Care Team Description 07/13/2025 1:49 PM EDT - 07/13/2025 11:59 PM EDT Hospital Encounter CT Scan - [address] [phone] Pain in right foot Discharge Disposition: Home [...] Health Maintenance Due Date Last Done Comments Colorectal Cancer Screening: Colonoscopy 1960 Zoster Vaccines (2 of 2) 07/29/2024 06/03/2024 Depression Screening 11/05/2024 COVID-19 Vaccine (4 - 2024-2 6 season) 2025 11/02/2021, 02/24/2021, 02/01/2021 Influenza Vaccine (#1) 2025 10/24/2022 Abdominal Aortic Aneurysm (AAA) Screen 07/13/2025 Cholesterol Screening (Lipid Panel) 07/13/2025 Falls Risk Assessment 07/13/2025 Hepatitis C [...] plantar fascia from plantar fasciitis. POS - [id number] -------- FINAL REPORT -------- Dictated By: Na Smith Dictated Date: 07/14/2025 12:23 ET Assigned Physician: Na Smith Reviewed and Electronically Signed By: Na Smith Signed Date: 07/14/2025 12:57 ET Workstation ID: [id number] Transcribed By: Self Edit Transcribed Date: 07/14/2025 [...] plantar fascia from plantar fasciitis. POS - [id number] -------- FINAL REPORT -------- Dictated By: Na Smith Dictated Date: 07/14/2025 12:23 ET Assigned Physician: Na Smith Reviewed and Electronically Signed By: Na Smith Signed Date: 07/14/2025 12:57 ET Workstation ID: [id number] Transcribed By: Self Edit Transcribed Date: 07/14/2025 12:37 ET us Adrianne CHANCE IMG CT PROCEDURES Final Resu lt from Last 3 Months Insurance [place] [phone] Care Teams Technical Sales Advisor Relationship Specialty Start Date End Date Physician, Pcp Unknown PCP - General 07/13/25
[2025-08-25 13:07] VITALS: BMI 28.0
[2025-08-27 08:34] VITALS: BMI 26.7
[2025-08-27] MEDS: Lactated Ringers 1,000 ML 100 ML IVCONT (08:36)
--- NOTE | 2025-08-27 08:49 | HO.ANESPROP2 ---
Documented by User: Cookie Hare NP 08/25/25 10:09 HPI - Anesthesia Eval Consult details Narrative: 65 yr old male for colonoscopy Type 2 DM: A1C above goal at 8.3% Severe MIGUEL PMFSH Active Problems Active Problems: All Active Problems (Updated 08/03/25 @ 14:37 by [facility]) Encounter for routine adult physical exam with abnormal findings (Acute) Foot pain, right (Acute) Screening for colon cancer (Acute) Fatigue due to sleep pattern disturbance (Acute) Nerve pain (Acute) Low platelet count (Acute) Loss of hearing (Acute) Severe obstructive sleep apnea (Acute) Environmental allergies (Acute) Daytime hypersomnia (Acute) Sleep apnea (Acute) Trigger middle finger of right hand (Acute) Palmar nodule (Acute) Pre-op evaluation (Acute) Diabetes (Acute) Intractable pain (Acute) Multiple rib fractures (Acute) Fall (Acute) Newly diagnosed diabetes (Acute) Elevated fasting blood sugar (Acute) Screening PSA (prostate specific antigen) (Acute) Physical exam (Acute) Low back pain radiating to lower extremity (Acute) Past Medical History Medical History Hearing loss Severe obstructive sleep apnea Diabetes Family History Family History Father HTN (hypertension) Diabetes mellitus Mother Asthma Mental health disorder Brother No problems noted. Brother Substance use disorder Son No problems noted. Sister Mental health disorder Sister No problems noted. Son No problems noted. Daughter Mental health disorder Maternal Aunt Mental health disorder Surgical History Surgical History History of appendectomy H/O colonoscopy Social History Social History Housing: House Are you a primary lead care manager to a significant other at home: No Do you presently have visiting nurse or other home services: No Alcohol intake: current Alcohol intake frequency: holidays/special occasions only Patient Tobacco Use Status: Never used Tobacco e-Cigarette/Vaping Use: Never Used Second Hand Smoke Exposure: No Have you been hit, kicked, punched, or otherwise hurt by someone within the past year? 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 Cognitive needs: No Hearing needs: No Vision needs: No Meds Allergies Allergy/AdvReac Type Severity Reaction Status Date / Time No Known Allergies Allergy Verified 08/27/25 08:40 Home Medications ?Medication ?Instructions ?Recorded ?Confirmed ?Last Taken ?Type magnesium gluconate 30 mg (550 mg) 30 mg PO DAILY 07/15/24 08/25/25 Unknown History tablet cholecalciferol (vitamin D3) 25 25 mcg PO DAILY 12/15/24 08/25/25 Unknown History mcg (1,000 unit) capsule wgbebavrzbru-bjumkipk-vbhuxz tablet 1 tab PO DAILY 12/15/24 08/25/25 Unknown History Documented by User: Maggie Addison DO 08/27/25 08:51 PMFSH Past Medical History Medical History Hearing loss Severe obstructive sleep apnea Diabetes Family History Family History Father HTN (hypertension) Diabetes mellitus Mother Asthma Mental health disorder Brother No problems noted. Brother Substance use disorder Son No problems noted. Sister Mental health disorder Sister No problems noted. Son No problems noted. Daughter Mental health disorder Maternal Aunt Mental health disorder Family history of problems with anesthesia: No Surgical History Surgical History History of appendectomy H/O colonoscopy History of Problems with Anesthesia: No Social History Social History Housing: House Are you a primary lead care manager to a significant other at home: No Do you presently have visiting nurse or other home services: No Alcohol intake: current Alcohol intake frequency: holidays/special occasions only Patient Tobacco Use Status: Never used Tobacco e-Cigarette/Vaping Use: Never Used Second Hand Smoke Exposure: No Have you been hit, kicked, punched, or otherwise hurt by someone within the past year? 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 Cognitive needs: No Hearing needs: No Vision needs: No Meds Allergies Allergy/AdvReac Type Severity Reaction Status Date / Time No Known Allergies Allergy Verified 08/27/25 08:40 Home Medications ?Medication ?Instructions ?Recorded ?Confirmed ?Last Taken ?Type magnesium gluconate 30 mg (550 mg) 30 mg PO DAILY 07/15/24 08/25/25 Unknown History tablet cholecalciferol (vitamin D3) 25 25 mcg PO DAILY 12/15/24 08/25/25 Unknown History mcg (1,000 unit) capsule ossibljmycfz-cldnemho-ccwuyh tablet 1 tab PO DAILY 12/15/24 08/25/25 Unknown History Exam Exam Date and Time: 08/27/25 0850 Height,Weight and Vital Signs: Height 5 ft 7 in Weight 77.2 kg Airway Mallampati Class: II TM Dist: >3cm Neck ROM: Full Loose/Missing/Broken Teeth: No (patient denies any loose or broken teeth) Heart: S1S2 Lungs: CTAB Assessment and Plan Assessment Anesthesia Assessment: Anesthesia Plan Discussed and Chart Reviewed Final Anesthetic Review Family History of Problems with Anesthesia: No History of Problems with Anesthesia: No NPO: Yes ASA Class: II Final Preanesthetic Review: No Changes in Pt Med Stat, Meds/Allgs Chart Reviewed, Consent Obtained/Reviewed and Anes Risks/Benef Reviewed Patient Risk: Low Procedure Risk: Low Anesthetic Plan Anesthetic Plan: MAC: and Agree w/ Assess. and Plan Disposition: Standard PACU
[2025-08-27 08:50] LABS: Glucose, Whole Blood 112 mg/dL (60-115)
[2025-08-27 08:55] VITALS: BP 129/76; PULSE 63; RESP 18; TEMP 36.7; O2SAT 97
--- NOTE | 2025-08-27 09:33 | MHC.SHP ---
Pre-Procedural Eval Section A - 24 Hr Update-Section A only Date of Service: 08/27/25 Section B - Complete if H&P > 30 days Chief Complaint: screening Relevant Family History (Specify if Yes): No Relevant Social History: None Present Medications: see Short Stay Collaborative assessment Medical History: Significant History (MIGUEL Thrombocytopenia Hearing loss Diabetes History of multiple rib fractures Low back pain with radiculopathy ) History of Previous Operations: Relevant previous surgery/procedure and date(s) (Colonoscopy- Appendectomy Radial fx repair) Allergies: Allergies Allergy/AdvReac Type Severity Reaction Status Date / Time No Known Allergies Allergy Verified 08/27/25 08:40 Review of Systems Sugical H&P ROS: Negative: Constitution, Cardiovascular, Respiratory, Neurological, Psychiatric, Hem-Onc, Allergic/Immunologic, Gastrointestinal, Genitourinary, Musculoskeletal, Integumentary, Endocrine and Eyes/Ears/Nose/Throat Exam Surgical H&P Exam: Normal: HEENT, Normal: Heart, Normal: Lungs, Normal: Extremities, Normal: Abdomen, Normal: Skin and Normal: Neurological Plan Diagnosis/Plan: Unchanged I have reviewed the history and physical and performed a pertinent physical examination on my patient. No changes have occurred unless specified. Time Spent With Patient Time: Total time managing care of this patient today ____ minutes.
--- NOTE | 2025-08-27 10:00 | HO.OPN-COLON ---
Colonoscopy Operative Note Operative Note Date of Service: 08/27/25 Narrative: Operative Information Procedure Description: Colonoscopy Indication: Screening Anesthesia: MAC COLONOSCOPY Instrument: Olympus variable stiffness pediatric scope 190L Colonoscopy Monitoring: Vital signs and clinical assessment, continuous EKG monitoring, Pulse oximetry, Carbon Dioxide monitoring and blood pressure monitoring were done throughout the procedure. Colon withdrawal time was 7 minutes. Procedure: The patient was placed in the left lateral decubitis position and pre-procedure medications were administered. After a digital rectal examination of the ano-rectum, the video colonoscope was inserted into the rectum and advanced through the colon to the cecum/TI. The colonoscope was slowly withdrawn in a retrograde panoramic fashion and the colon mucosa was carefully examined including a retroflexed view of the rectum. Findings and interventions are described below. Procedure Difficulty: [] Findings: Terminal Ileum-normal Cecum:normal Ascending Colon: moderate diverticulosis Transverse Colon - normal Descending Colon: moderate diverticulosis Sigmoid Colon: moderate diverticulosis Rectum: Retroflexion with small internal hemorrhoids seen, grade I Anorectum - normal Intervention: none Colon preparation: Bradshaw Bowel Preparation Scale Right colon; 3 Transverse colon: 3 Left colon; 3 (0 = Unprepared colon segment with mucosa not seen due to solid stool that cannot be cleared. 1 = Portion of mucosa of the colon segment seen, but other areas of the colon segment not well seen due to staining, residual stool and/or opaque liquid. 2 = Minor amount of residual staining, small fragments of stool and/or opaque liquid, but mucosa of colon segment seen well. 3 = Entire mucosa of colon segment seen well with no residual staining, small fragments of stool or opaque liquid) Impression and Post Procedure Diagnosis: diverticulosis internal hemorrhoids Plan: High fiber diet leaflet Avoid straining at stool, epsom salts and sitz bath, anusol supps or cream Repeat Colonoscopy in 10 years or earlier if clinically indicated Above findings were reviewed with the patient and relevant handouts were provided if indicated.
[2025-08-27 10:02] VITALS: BP 99/54; PULSE 66; RESP 18; TEMP 36.1; O2SAT 95
[2025-08-27 10:17] VITALS: BP 104/64; PULSE 70; RESP 16; TEMP 36.1; O2SAT 96
== END 2025-08-27 10:36 | disposition home or self-care (01) ==
PROVIDERS: PCP Nurse Practitioner Family; Visit Provider Internal Medicine Gastroenterology
PROC: 0DJD8ZZ Inspection of Lower Intestinal Tract, Via Natural or Artificial Opening Endoscopic (ICD-10-PCS; CPT 45378; principal; 2025-08-27 10:40)
DX: Z12.11 Encounter for screening for malignant neoplasm of colon (principal); E11.9 Type 2 diabetes mellitus without complications; K64.0 First degree hemorrhoids; K57.90 Diverticulosis of intestine, part unspecified, without perforation or abscess without bleeding
CPT/HCPCS: G0121; 82947; J2003; J2704

== ENCOUNTER → 2025-08-27 07:58 | Outpatient (BNV) | payer MEDICARE, SELFPAY | PROVIDERS: PCP Nurse Practitioner Family; Visit Provider Internal Medicine Gastroenterology | DX: Z12.11 Encounter for screening for malignant neoplasm of colon (principal); K57.90 Diverticulosis of intestine, part unspecified, without perforation or abscess without bleeding; K64.0 First degree hemorrhoids | CPT/HCPCS: G0121 ==